=== PATIENT | male | born 1960 | race Caucasian/White ===

== ENCOUNTER 2020-02-04 15:11 | Emergency (ER) | payer BC, SELFPAY ==
[2020-02-04 15:30] VITALS: BP 164/91; PULSE 77; RESP 18; TEMP 36.9; O2SAT 98
[2020-02-04] MEDS: FAMOTIDINE 20 MG/ISO 50 ML 20 MG/50 ML BAG 100 MG IVPB (15:56)
[2020-02-04] MEDS: methylPREDNISolone SOD SUCC 125 MG VIAL IV PUSH (15:56)
--- NOTE | 2020-02-04 16:06 | ED.ALLEREA ---
HPI - Allergic Reaction General Chief complaint: Allergic Reaction Stated complaint: allergic reaction Time Seen by Provider: 02/04/20 15:50 Source: patient and RN notes reviewed Mode of arrival: ambulatory Limitations: no limitations History of Present Illness MD complaint: allergic reaction and facial swelling Onset (ago): hour(s) (8) Exposure: unknown Symptoms: facial swelling and lip swelling Severity: moderate Treatment prior to arrival: benadryl Previous Allergic Reaction History: none Related Data Home Medications Medication Instructions Recorded Confirmed atorvastatin 20 mg tablet 20 mg PO QPM tablet 11/07/19 02/04/20 blood-glucose meter,continuous #1 each 11/07/19 11/07/19 insulin glargine [Lantus U-100 45 unit SUB-Q HS 02/04/20 02/04/20 Insulin] Allergies Allergy/AdvReac Type Severity Reaction Status Date / Time No Known Allergies Allergy Unverified 10/02/19 10:28 Review of Systems Constitutional: Constitutional: Denies chills, Denies fatigue, Denies fever(s) and Denies weakness Cardiovascular: Cardiovascular: Reports no additional cardiovascular complaints Respiratory: Respiratory: Denies dyspnea, Denies stridor and Denies wheezing Gastrointestinal: Gastrointestinal: Reports no additional gastrointestinal complaints Musculoskeletal: Musculoskeletal: Reports no additional musculoskeletal complaints Integumentary/Breasts: Skin/Breast: Reports system reviewed and no additional complaints, except as docu, Denies pruritus and Denies erythema Psychiatric: Psychiatric: Reports no additional psychiatric complaints Endocrine: Endocrine: Reports no additional endocrine complaints Hematologic/Lymphatic: Hematologic/Lymphatic: Reports no additional hematologic/lymphatic complaints Allergic/Immunologic: Allergic/Immunologic: Denies urticaria, Denies itchy eyes, Reports lip swelling, Denies throat swelling, Reports tongue swelling and Denies wheezing PMFSH Surgical History Surgical History H/O cataract extraction Family History Family History Grandparent Diabetes mellitus Mother Hypertension Family history of osteoarthritis Father Family history of malignant neoplasm of urinary bladder Other Family history of Alzheimer's disease Family history of lung cancer Malignant neoplasm of prostate No family history of malignant neoplasm Social History Social History Alcohol intake: current Exam Const: General: healthy appearing, no acute distress and alert Nutritional Appearance: well nourished and obese centrally obese Orientation/consciousness: patient oriented x3 HENMT: Mouth: Yes lip abnormal bilateral lower swelling; without rashes, Yes muffled voice and Yes tongue abnormal edematous Throat: posterior oropharynx abnormal edema and uvular edema Eyes: Conjunctivae: conjunctivae normal Pupils: Equal, round and reactive pupils present Neck: Neck: normal visual inspection and no lymphadenopathy Resp: Effort & Inspection: normal respiratory effort and not labored Auscultation: clear to auscultation bilaterally Cardio: Rate: regular rate Rhythm: regular rhythm GI: GI Palp: Yes Soft to palpation and No Tenderness to palpation present (GI) Auscultation: normal bowel sounds Back/Spine/Pelvis: Cervical Spine: cervical ROM normal Thoracic/Lumbar Spine: thoraco-lumbar ROM normal Skin: General skin exam: normal color Rashes: no rashes Neuro: General: patient oriented x3, moves all extremities and no focal motor deficits Gait exam (Neuro): Normal gait present Extrem: General: normal to inspection and no clubbing, cyanosis or edema Psych: Appearance: grossly normal and well kempt Affect: normal affect Attitude: cooperative Thought content: Yes Normal thought content present Course Reevaluation(s) Reevaluation #1: Aleja
[2020-02-04 16:28] VITALS: BP 157/61; PULSE 73; RESP 18; O2SAT 99
[2020-02-04 17:32] VITALS: BP 151/82; PULSE 71; RESP 18; O2SAT 99
== END 2020-02-04 17:46 | disposition home or self-care (01) ==
PROVIDERS: Emergency Provider Emergency Medicine
DX: T78.3XXA Angioneurotic edema, initial encounter (principal)
CPT/HCPCS: 96365; 96375; 99282; 99284; J2930

== ENCOUNTER 2021-07-22 08:58 | Emergency (ER) | payer BC, SELFPAY ==
--- NOTE | ~2021-07-22 | US_ITS ---
EXAMINATION: US venous doppler [facility] DATE: 07/22/2021 10:23 INDICATION: Left lower limb swelling. TECHNIQUE: Grayscale ultrasound images without and with compression and Doppler ultrasound images of the left lower extremity veins were obtained. COMPARISON: None. FINDINGS: The visualized portions of left common femoral vein, profunda (deep) femoral vein, femoral vein, popl iteal vein, peroneal veins, posterior tibial veins, and greater saphenous vein outflow are patent. IMPRESSION: 1. No deep venous thrombosis. Reviewed, dictated and finalized at location A. APPLICATION DEVELOPMENT MANAGER
--- NOTE | ~2021-07-22 | XR_ITS ---
XR ankle LT min 3V 07/22/2021 11:11 Indication: Ankle swelling and pain Procedure: 4 views left ankle Comparison: No prior studies for comparison. Findings: There is a large amount of soft tissue swelling. Ankle mortise intact. There is a possible avulsion fracture at the medial malleolus. There is deformity of the mid foot with multiple loose bod ies superior to the midfoot on the lateral view. Findings are suspicious for neuropathic joint or inf ection. Impression: 1: Deformity of the midfoot with loose bodies. Consider neuropathic joint or infection. If there is c oncern for infection, consider correlation with MRI. 2: Possible avulsion fracture at the medial malleolus. Correlate for point tenderness. Reviewed, dictated and finalized at location A. ATION REP Impression: 1: Deformity of the midfoot with loose bodies. Consider neuropathic joint or in fection. If there is concern for infection, consider correlation with MRI. 2: Possible avulsion fracture at the medial malleolus. Correlate for point tend erness.
[2021-07-22 09:12] VITALS: BP 153/69; PULSE 99; RESP 18; TEMP 37.1; O2SAT 98
--- NOTE | 2021-07-22 09:14 | ED.GENADULT ---
HPI - General Adult General Chief complaint: Extremity Problem,Nontraumatic Stated complaint: L FOOT SWOLLEN Time Seen by Provider: 07/22/21 09:14 Source: patient Mode of arrival: ambulatory Limitations: no limitations History of Present Illness HPI narrative: 61-year-old male with a history of diabetes, dyslipidemia, hypertension and obesity presents with -- left leg and left foot swelling for the past few days. No history of trauma. No obvious focus of infection. No chest pain or shortness of breath. No fever chills. MD complaint: left leg and foot swelling Onset (ago): day(s) Location: left and lower extremity ( Left lower leg and foot) Radiation: non-radiation Severity: moderate Associated symptoms: rash ( skin is erythematous.) Related Data Home Medications Medication Instructions Recorded Confirmed blood-glucose meter,continuous #1 each 09/11/20 05/13/21 furosemide 20 mg PO BID 07/22/21 07/22/21 hydrochlorothiazide 25 mg PO DAILY 07/22/21 07/22/21 olmesartan 20 mg PO DAILY 07/22/21 07/22/21 tadalafil 20 mg PO DAILY 07/22/21 07/22/21 Allergies Allergy/AdvReac Type Severity Reaction Status Date / Time lisinopril Allergy Severe angioedema Verified 07/22/21 09:16 Review of Systems Review of Systems: All systems reviewed & are unremarkable except as noted in HPI and below Cardiovascular: Comments: No chest pain Respiratory: Comments: no shortness of breath PMFSH Past Medical History Medical History Essential (primary) hypertension Mixed hyperlipidemia Obesity, unspecified Type 2 diabetes mellitus with hyperglycemia Surgical History Surgical History H/O cataract extraction Family History Family History (Updated 07/22/21 @ 10:02 by Escobar Godfrey MD) Grandparent Diabetes mellitus Mother Hypertension Family history of osteoarthritis DVT (deep venous thrombosis) Father Family history of malignant neoplasm of urinary bladder Other Family history of Alzheimer's disease Family history of lung cancer Malignant neoplasm of prostate No family history of malignant neoplasm Social History Social History (Updated 05/13/21 @ 11:14 by Linh Mcrae [facility]) Smoking status: Never smoker Alcohol intake: current Exam Const: General: no acute distress Nutritional Appearance: well nourished Other: Obese HENMT: Head: normal to inspection Other: crowded oropharynx Eyes: Conjunctivae: conjunctivae normal Pupils: Equal, round and reactive pupils present EOM: EOMs intact bilaterally Neck: Neck: normal visual inspection and no lymphadenopathy Chest: Chest palpation & inspection: normal inspection of the chest Resp: Effort & Inspection: normal respiratory effort Cardio: Rate: regular rate Rhythm: regular rhythm GI: GI Palp: Yes Soft to palpation : General: Yes no CVA tenderness Back/Spine/Pelvis: Back: no CVA tenderness Skin: Other: redness of the skin of the left leg and foot. Neuro: General: patient oriented x3, moves all extremities and no meningeal signs Extrem: Other: Left lower leg and foot swelling. Skin is erythematous. No tenderness. No warmth. No evidence of a penetrating injury. Psych: Appearance: grossly normal Mental Status: mental status grossly normal Course Course Emergency Course: patient presents with left leg and foot swelling. His workup was done negative for DVT. Vital Signs Vital signs: Vital Signs Temperature 37.1 C 07/22/21 09:12 Pulse Rate 99 07/22/21 09:12 Respiratory Rate 18 07/22/21 09:12 Blood Pressure 153/69 H 07/22/21 09:12 Pulse Oximetry 98 07/22/21 09:12 Temperature 37.1 C 07/22/21 09:12 Pulse Rate 99 07/22/21 09:12 Respiratory Rate 18 07/22/21 09:12 Blood Pressure 153/69 H 07/22/21 09:12 Pulse Oximetry 98 07/22/21 09:12 Medical Decision Making MDM
--- NOTE | 2021-07-22 09:22 | ECG_ITS ---
Measurements Intervals [place] Rate: 89 P: 66 NV: 205 QRS: 89 QRSD: 97 T: 43 QT: 336 QTc: 409 Interpretive Statements SINUS RHYTHM DELAYED PRECORDIAL R/S TRANSITION BORDERLINE ECG Electronically Signed On 07-22-2021 11:14:27 LENS ENGRAVER by Black Mccauley D.O.
--- NOTE | 2021-07-22 09:27 | PC.NURSE ---
Cardiopulmonary notified of EKG.
[2021-07-22 09:42] LABS: Basophils Absolute Auto 0.02 K/mm3 (0.00-0.10); Basophils Percent Auto 0.3 % (0.0-1.0); Eosinophils Absolute Auto 0.12 K/mm3 (0.02-0.50); Eosinophils Percent Auto 1.8 % (1.0-6.0); Hematocrit 34.7 % (40.0-54.0); Hemoglobin 11.2 g/dL (14.0-18.0); Immature Granulocyte Absolute 0.04 K/mm3 (0.00-0.00); Immature Granulocyte Percent A 0.6 % (0.0-0.0); Lymphocytes Absolute Auto 0.87 K/mm3 (1.10-4.50); Mean Corpuscular HGB Conc 32.3 g/dL (32.0-36.0); Mean Corpuscular Hemoglobin 28.9 pg (27.0-31.0); Mean Corpuscular Volume 89.7 fL (78.0-102.0); Mean Platelet Volume 8.7 fl (8.7-11.0); Monocytes Absolute Auto 0.44 K/mm3 (0.10-0.90); Monocytes Percent Auto 6.6 % (2.0-11.0); Neutrophils Absolute Auto 5.2 K/mm3 (1.7-7.2); Neutrophils Percent Auto 77.7 % (50.0-70.0); Platelet Count Result 303 K/mm3 (150-420); Red Blood Count 3.87 M/mm3 (4.70-6.10); Red Cell Distribution Width 12.6 % (11.6-14.4); White Blood Count 6.7 K/mm3 (4.8-10.8)
[2021-07-22 09:57] LABS: Partial Thromboplastin Time 26.8 SEC (23.90-30.70); Prothrombin Time 10.7 Seconds (9.50-12.10)
[2021-07-22 10:00] LABS: D Dimer 3.08 mg/L (0.19-0.50)
[2021-07-22 10:06] LABS: Alanine Aminotransferase 27 U/L (16-63); Albumin Level 3.2 g/dL (3.4-5.0); Alkaline Phosphatase 74 U/L (46-116); Anion Gap 7 mmol/L (8-16); Aspartate Amino Transferase 18 U/L (15-37); Bilirubin,Total 0.4 mg/dL (0.00-1.00); Blood Urea Nitrogen 29 mg/dL (7-18); Calcium 8.7 mg/dL (8.5-10.1); Carbon Dioxide 31 mmol/L (21-32); Chloride 94 mmol/L (98-108); Estimated CRCL calculation 58 ml/min; Estimated Glomerular Filt Rate 42; Glucose 129 mg/dL (70-99); Osmolality Calculated 281 mOsm/kg (285-295); Potassium 3.5 mmol/L (3.5-5.1); Sodium 132 mmol/L (136-145); Troponin I 10.3 ng/L (0.00-60.4); Uric Acid 10.6 mg/dL (3.5-7.2)
[2021-07-22 10:07] LABS: NT Pro B Type Natriuretic Pept 87 pg/mL (0-125)
--- NOTE | 2021-07-22 10:33 | PC.NURSE ---
Addendum entered by Cass Childers RN 07/22/21 10:43: Lab called at 0959, not at time of documentation. Original Note: Lab called with critical D-Dimer of 3.08. Read back to equipment operator/laborer. Dr. Godfrey notified.
--- NOTE | 2021-07-22 10:50 | PC.NURSE ---
Pt resting comfortably at this time. Given urinal to void. Denies any further needs or complaints.
[2021-07-22 12:20] VITALS: BP 172/88; PULSE 84; RESP 18; O2SAT 98
== END 2021-07-22 12:21 | disposition home or self-care (01) ==
PROVIDERS: Emergency Provider Internal Medicine Critical Care Medicine; PCP Family Medicine
DX: M79.89 Other specified soft tissue disorders (principal); M14.60 Charcot's joint, unspecified site; I12.9 Hypertensive chronic kidney disease with stage 1 through stage 4 chronic kidney disease, or unspecified chronic kidney disease; M10.372 Gout due to renal impairment, left ankle and foot; N18.32 Chronic kidney disease, stage 3b; S82.892D Other fracture of left lower leg, subsequent encounter for closed fracture with routine healing; E78.2 Mixed hyperlipidemia; E11.9 Type 2 diabetes mellitus without complications
CPT/HCPCS: 36415; 73610; 80053; 83880; 84484; 84550; 85025; 85380; 85610; 85730; 93005; 93971; 99283; 99284

== ENCOUNTER 2021-07-30 10:14 | Outpatient (CLI) | payer BC, SELFPAY ==
--- NOTE | ~2021-07-30 | XR_ITS ---
EXAMINATION: XR foot LT min 3V EXAM DATE: 07/30/2021 10:36 INDICATION: Suspected Charcot Event Foot, lt Foot Edema . TECHNIQUE: Left foot dorsoplantar, lateral and oblique projections obtained and reviewed. There is n o prior study for comparison. FINDINGS: There is extensive erosive and bony productive involving the midfoot, appearance is consist ent with neuropathic joint. Soft tissue is obscured by overlying bandage. There is pes planus. Comple tely laterally dislocated left 3rd proximal phalanx and subluxed left 2nd proximal phalanx, both of w hich could be chronic but please clinically correlate. There are no acute fractures identified. IMPRESSION: 1. Severe left mid foot arthritic change, consistent with neuropathic joint. 2. Dislocated 3rd proximal phalanx, subluxed 2nd phalanx. Reviewed, dictated and finalized at location B. COMMUNICATION TOWER TECHNICIAN
== END 2021-07-30 10:15 | disposition home or self-care (01) ==
LOC: CHSIMG 10:17
PROVIDERS: PCP Family Medicine; Visit Provider Podiatrist
DX: R60.0 Localized edema (principal)
CPT/HCPCS: 73630

== ENCOUNTER 2021-08-14 10:38 | Outpatient (CLI) | payer BC, SELFPAY ==
--- NOTE | ~2021-08-14 | XR_ITS ---
EXAMINATION: XR foot LT min 3V DATE: 08/14/2021 11:20 INDICATION: Charcot deformity of left foot. TECHNIQUE: 3 views of left foot standing were obtained. COMPARISON: Left foot radiographs 07/30/2021 FINDINGS: Pes planus is noted. There is chronic fragmentation of navicular. There is severe arthritis of the naviculocuneiform joints and second-fifth tarsometatarsal joints with bone volume loss and palomares bluxations. There is chronic periosteal reaction of the second-fourth metatarsals. There is chronic l ateral subluxation of second proximal phalanx with respect to the metatarsal. There is chronic latera l dislocation of third proximal phalanx with respect to the metatarsal. No acute fracture. There is m ild osteoarthritis of some the interphalangeal joints and first metatarsophalangeal joint. IMPRESSION: 1. 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 2. Chronic dislocation of third metatarsophalangeal joint and chronic subluxation of second metatarso phalangeal joint. Reviewed, dictated and finalized at location A. ERY MACHINE SETTER/SET UP OPERATOR IMPRESSION: 1. 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 2. Chronic dislocation of third metatarsophalangeal joint and chronic subluxati on of second metatarsophalangeal joint.
== END 2021-08-14 10:39 | disposition home or self-care (01) ==
LOC: CHSIMG 10:40
PROVIDERS: PCP Family Medicine; Visit Provider Podiatrist
DX: M14.672 Charcot's joint, left ankle and foot (principal)
CPT/HCPCS: 73630

== ENCOUNTER 2021-08-28 09:57 | Outpatient (CLI) | payer BC, SELFPAY ==
--- NOTE | ~2021-08-28 | XR_ITS ---
EXAMINATION: XR foot LT min 3V EXAM DATE: 08/28/2021 10:16 INDICATION: Neuropathic foot, left foot x5-6 wks . TECHNIQUE: Left foot dorsoplantar, lateral and oblique projections obtained and reviewed. Comparison is made to prior examination from 08/14/2021. FINDINGS: More pronounced periosteal reaction along the left 3rd, 4th and 5th metatarsal bones. There is macerated appearance to the midfoot, osteolytic and bony productive changes consistent with neuro pathic joint. Chronic 3rd proximal phalangeal lateral dislocation and 2nd proximal phalangeal subluxa tion. There are no acute fractures identified. There are arterial calcifications, arteriosclerosis. S welling overlying the forefoot. IMPRESSION: 1. Severe left mid foot neuropathic joint, mild progression in metatarsal periosteal reaction. 2. Chronic 3rd proximal phalangeal dislocation and 2nd subluxation. Reviewed, dictated and finalized at location B. MANAGEMENT NURSE IMPRESSION: 1. Severe left mid foot neuropathic joint, mild progression in metatarsal jillian osteal reaction. 2. Chronic 3rd proximal phalangeal dislocation and 2nd subluxation.
== END 2021-08-28 09:58 | disposition home or self-care (01) ==
LOC: CHSIMG 09:59
PROVIDERS: PCP Family Medicine; Visit Provider Podiatrist
DX: M14.672 Charcot's joint, left ankle and foot (principal)
CPT/HCPCS: 73630

== ENCOUNTER 2021-09-18 10:44 | Outpatient (CLI) | payer BC, SELFPAY ==
--- NOTE | ~2021-09-18 | XR_ITS ---
EXAMINATION: XR foot LT min 3V DATE: 09/18/2021 11:07 INDICATION: Charcot left foot TECHNIQUE: Dorsoplantar, two oblique and lateral views of the left foot were obtained. COMPARISON: None. FINDINGS: Pes planus with collapse of the longitudinal arch. Severe polyarticular arthritis in the midfoot most prominent at the navicular cuneiform, third-fifth tarsal metatarsal joints and at the articulation b etween the medial and lateral cuneiforms. There has been some mild interval progression in associated destructive changes with some fragmentation and prominent increased sclerosis at the base of several of the metatarsals and multiple tarsal bones in the midfoot. Lateral dislocation at the third metata rsophalangeal joint and lateral subluxation near dislocation at the second metatarsophalangeal joint both without interval change. No acute fracture. IMPRESSION: 1. Mild interval progression of severe likely neuropathic osteoarthropathy in the midfoot. 2. Chronic dislocation of the third metatarsophalangeal joint and chronic subluxation/near dislocatio n of the second metatarsophalangeal joint. Reviewed, dictated and finalized at location B. LIARY POWER EQUIPMENT OPERATOR IMPRESSION: 1. Mild interval progression of severe likely neuropathic osteoarthropathy in t he midfoot. 2. Chronic dislocation of the third metatarsophalangeal joint and chronic sublu xation/near dislocation of the second metatarsophalangeal joint.
== END 2021-09-18 10:45 | disposition home or self-care (01) ==
LOC: CHSIMG 10:46
PROVIDERS: PCP Family Medicine; Visit Provider Podiatrist
DX: A52.16 Charcot's arthropathy (tabetic) (principal)
CPT/HCPCS: 73630

== ENCOUNTER 2021-10-09 13:31 | Outpatient (CLI) | payer BC, SELFPAY ==
--- NOTE | ~2021-10-09 | XR_ITS ---
XR foot LT min 3V DATE: 10/09/2021 13:53 INDICATION: Charcot deformity of left foot. Swelling. TECHNIQUE: Weightbearing AP, oblique and lateral views COMPARISON: 09/18/2021 left foot FINDINGS: Pes planus. Severe irregular destructive neuropathic osteoarthropathy at the tarsal joints and second through fif th tarsometatarsal joints is again noted. There is organized callus formation consistent with healed fractures of the shafts of the fourth and fifth metatarsal bones. There is chronic dislocation at the third metatarsophalangeal joint and lateral subluxation of the se cond metatarsophalangeal joint. There is diminished soft tissue swelling of the dorsum of the foot compared to 09/18/2021. There is extensive arterial calcification including prominent metatarsal artery calcifications. IMPRESSION: Diminished soft tissue swelling of the foot since 09/18/2021 Chronic severe neuropathic changes at the tarsal and second through fifth tarsometatarsal joints Chronic bilateral dislocation at the third metatarsophalangeal joint Chronic lateral subluxation at the second metatarsophalangeal joint Reviewed, dictated and finalized at location A. CCO SORTER IMPRESSION: Diminished soft tissue swelling of the foot since 09/18/2021 Chronic severe neuropathic changes at the tarsal and second through fifth tarso metatarsal joints Chronic bilateral dislocation at the third metatarsophalangeal joint Chronic lateral subluxation at the second metatarsophalangeal joint
== END 2021-10-09 13:32 | disposition home or self-care (01) ==
LOC: CHSIMG 13:33
PROVIDERS: PCP Family Medicine; Visit Provider Podiatrist
DX: M21.6X2 Other acquired deformities of left foot (principal)
CPT/HCPCS: 73630

== ENCOUNTER 2021-10-30 10:34 | Outpatient (CLI) | payer BC, SELFPAY ==
--- NOTE | ~2021-10-30 | XR_ITS ---
XR foot LT min 3V DATE: 10/30/2021 10:55 INDICATION: Charcot arthropathy TECHNIQUE: 3 weightbearing views COMPARISON: 10/09/2021 foot FINDINGS: There is pes planus, with extensive destructive changes and dislocations at the tarsal and tarsometatarsal joints. There is lateral subluxation at second metatarsophalangeal joint and lateral dislocation at the third metatarsophalangeal joint. There is extensive anterior and posterior tibial artery calcification IMPRESSION: Severe neuropathic osteoarthropathy, with little interval change since 10/09/2021 Reviewed, dictated and finalized at location B. E DELIVERY SERVICE DRIVER IMPRESSION: Severe neuropathic osteoarthropathy, with little interval change si nce 10/09/2021
== END 2021-10-30 10:35 | disposition home or self-care (01) ==
LOC: CHSIMG 10:36
PROVIDERS: PCP Family Medicine; Visit Provider Podiatrist
DX: M14.672 Charcot's joint, left ankle and foot (principal)
CPT/HCPCS: 73630

== ENCOUNTER 2021-11-27 11:02 | Outpatient (CLI) | payer BC, SELFPAY ==
--- NOTE | ~2021-11-27 | XR_ITS ---
XR_[id number]_CR DATE: 11/27/2021 11:22 INDICATION: Charcot left foot TECHNIQUE: 3 weightbearing views, AP, lateral and oblique projections COMPARISON: October 30, 2021 ( FINDINGS: Again noted is extensive destructive change, bone and joint disintegration involving the ta rsal and tarsometatarsal areas, with dislocations in tarsometatarsal and third metatarsophalangeal dung ints. The radiographic features are classic for Charcot neuropathic changes. There is little change since 10/30/2021. IMPRESSION: No significant change since 10/30/2021 Reviewed, dictated and finalized at [facility]. Reviewed, dictated and finalized at location A.
== END 2021-11-27 11:03 | disposition home or self-care (01) ==
LOC: CHSIMG 11:05
PROVIDERS: PCP Family Medicine; Visit Provider Podiatrist
DX: M14.672 Charcot's joint, left ankle and foot (principal)
CPT/HCPCS: 73630

== ENCOUNTER 2022-05-01 10:34 | Outpatient (CLI) | payer BC, SELFPAY ==
--- NOTE | ~2022-05-01 | XR_ITS ---
XR foot LT min 3V DATE: 05/01/2022 10:54 INDICATION: Neoplasm of unspecified behavior bone TECHNIQUE: 3 views COMPARISON: 10/30/2021 left foot FINDINGS: Prominent anterior and posterior tibial artery, dorsalis pedis artery, metatarsal and digit al artery calcifications are present, suggesting diabetes. Pes planus. Prominent neuropathic changes are again identified particularly at the tarsal and tarsal metatarsal j oints, including joint space narrowing, destruction. There is chronic dislocation at the third metata rsophalangeal joint. IMPRESSION: Persistent severe neuropathic changes Extensive arterial calcifications likely due to diabetes Pes planus Reviewed, dictated and finalized at location A.
== END 2022-05-01 10:35 | disposition home or self-care (01) ==
LOC: CHSIMG 10:37
PROVIDERS: Visit Provider Student in an Organized Health Care Education/Training Program
DX: A52.16 Charcot's arthropathy (tabetic) (principal)
CPT/HCPCS: 73630

== ENCOUNTER → 2022-05-01 13:09 | Outpatient (CLI) | payer BC, SELFPAY ==
--- NOTE | ~2022-05-01 | MR_ITS ---
EXAMINATION: MR foot LT wo/w con DATE: 05/01/2022 14:10 INDICATION: Left foot swelling. Neoplasm of unspecified behavior of bone. TECHNIQUE: Magnetic resonance imaging (MRI) of the left foot was performed without and with 20 mL Mul tiHance intravenous contrast. COMPARISON: Left foot radiographs 05/01/2022, 11/27/21 FINDINGS: There is lateral dislocation of third proximal phalanx with respect to the metatarsal. Ther e is severe neuropathic osteoarthropathy of the midfoot including bone volume loss of navicular, cubo id, the cuneiforms, and the bases of the second-fifth metatarsals resulting in a rocker-bottom deform ity. There is osteoarthritis of the ankle joint including an osteochondral lesion talar dome. There i s mild osteoarthritis of many of the metatarsophalangeal joints and interphalangeal joints. There is severe fatty atrophy of the musculature of the foot. There is inflammation and scarring in the soft t issues around the midfoot including the subcutaneous fat plantar to the midfoot. No visible skin defe ct. IMPRESSION: 1. 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 2. Dislocation of third metatarsophalangeal joint. Reviewed, dictated and finalized at location A. IMPRESSION: 1. 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 2. Dislocation of third metatarsophalangeal joint.
== END ==
PROVIDERS: PCP Student in an Organized Health Care Education/Training Program; Visit Provider Student in an Organized Health Care Education/Training Program
DX: M19.072 Primary osteoarthritis, left ankle and foot (principal)
CPT/HCPCS: 73720; A9577

== ENCOUNTER 2022-08-11 15:46 | Outpatient (CLI) | payer BC, SELFPAY | END 2022-08-11 15:47 | disposition home or self-care (01) | PROVIDERS: PCP Family Medicine; Visit Provider Specialist | DX: C44.519 Basal cell carcinoma of skin of other part of trunk (principal) | CPT/HCPCS: 88305 ==

== ENCOUNTER 2023-10-26 18:33 | Emergency (ER) | payer BC, SELFPAY ==
--- NOTE | 2023-10-26 18:38 | ED.BACK ---
HPI - Back Pain/Injury General Chief Complaint: Back Pain/Injury Stated Complaint: Lower back pain Time Seen by Provider: 10/26/23 19:08 Source: patient and RN notes reviewed Mode of arrival: ambulatory Limitations: no limitations History of Present Illness HPI Narrative: 63-year-old male presents with concern of for right low back pain since yesterday. Reports he was having some back spasm my now is having pain particularly when he tries to step up into his truck. He reports he has been using a leaf. He denies loss of bowel or bladder function, perianal anesthesia, weakness in any extremity. He denies injury or trauma. 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 CARDIOVASCULAR: Denies chest pain, palpitations, or edema. RESPIRATORY: Denies cough or dyspnea. GASTROINTESTINAL: Denies abdominal pain, nausea, vomiting, diarrhea, loss of bowel function GENITOURINARY: Denies dysuria, hematuria, frequency, loss of bladder function. SKIN: Denies rash or itching. MUSCULOSKELETAL: Reports right low back pain NEUROLOGIC: Denies numbness, weakness, or headache. All systems reviewed & are unremarkable except as noted in HPI and below [facility] Past Medical History Medical History (Updated 10/26/23 @ 19:20 by Renetta Nunez NP) Charcot ankle (~10/2022) Diabetic foot ulcer Essential (primary) hypertension Mixed hyperlipidemia Obesity, unspecified Skin cancer Removed from chest 09/2022 Type 2 diabetes mellitus with hyperglycemia Surgical History Surgical History H/O cataract extraction Family History Family History Grandparent Diabetes mellitus Mother Hypertension Family history of osteoarthritis DVT (deep venous thrombosis) Father Family history of malignant neoplasm of urinary bladder Other Family history of Alzheimer's disease Family history of lung cancer Malignant neoplasm of prostate No family history of malignant neoplasm Social History Social History Smoking status: Never smoker Second hand tobacco smoke exposure: No Alcohol intake: current Do You Feel Safe in your Home?: Yes Lack of Transportation: No Lack of Food: Never True Current Housing: I Have Housing Concerned About Future Housing: No Difficulty Paying Gas/Electric Bills: No Difficulty Paying for Meds: No Currently Unemployed: No Education: High School Diploma/GED Difficulty w/ Childcare or Family Care: No Comments At time of signature, agree with nursing past medical, surgical, social and family history. There is no relevant family history pertinent to the presenting complaint Exam Narrative: GENERAL: Well-appearing, well-nourished, and in no acute distress. HEAD: Normocephalic, atraumatic. EYES: PERRLA and EOMI. NECK: Supple. No lymphadenopathy. CHEST: Clear to auscultation. No respiratory distress. HEART: Regular rate and rhythm. Distal pulses palpable and equal, cap refill <3 seconds ABDOMEN: Soft, nontender, nondistended, normal active bowel sounds, no palpable or pulsatile masses. No CVA tenderness MUSCULOSKELETAL: Normal range of motion and strength in all extremities; 5/5 strength with hip flexion and extension, dorsiflexion and extension, knee flexion a
[2023-10-26 18:40] VITALS: BP 161/66; PULSE 86; RESP 16; TEMP 36.4; O2SAT 99
[2023-10-26] MEDS: KETOROLAC (*BKC) 60 MG/2 ML VIAL IM (19:27)
== END 2023-10-26 19:33 | disposition home or self-care (01) ==
PROVIDERS: Emergency Provider Nurse Practitioner; PCP Family Medicine
DX: M54.50 Low back pain, unspecified (principal); I10 Essential (primary) hypertension; E11.9 Type 2 diabetes mellitus without complications; E78.2 Mixed hyperlipidemia; Z85.828 Personal history of other malignant neoplasm of skin
CPT/HCPCS: 96372; 99213; G0463; J1885

== ENCOUNTER 2023-11-01 12:50 | Emergency (ER) | payer BC, SELFPAY ==
[2023-11-01 12:54] VITALS: BP 179/79; PULSE 85; RESP 18; TEMP 36.4; O2SAT 100
[2023-11-01] MEDS: methocarbamoL 500 MG TABLET 1000 MG PO (13:11)
[2023-11-01] MEDS: HYDROcodone/acetaminophen (*CRX) 5-325 MG TABLET 2 TAB PO (13:12)
[2023-11-01] MEDS: KETOROLAC (*BKC) 60 MG/2 ML VIAL IM (13:13)
[2023-11-01] MEDS: ORPHENADRINE CITRATE 30 MG/ML 2 ML VIAL 60 MG IM (13:13)
--- NOTE | 2023-11-01 13:52 | ED.GENADULT ---
HPI - General Adult General Chief complaint: Back Pain/Injury Stated complaint: back pain Time Seen by Provider: 11/01/23 12:55 History of Present Illness HPI narrative: 63yo man with diabetic neuropathy and severe obesity presents with one week of low right sided back pain, not improving with Prednisone and Cyclobenzaprine (Flexeril) given to him by urgent care 6 days ago. No fevers, chills, numbness, weakness, saddle anesthesia, retention, or incontinence. Pain is very minor at rest but 9/10 with lifting of the right leg, impairing ambulation. No trauma or straining activity recently. 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) aspirin 81 mg tablet,delayed 81 mg PO DAILY 10/22/22 09/08/23 release (Adult Low Dose Aspirin) silver sulfadiazine 1 % topical applic topical 10/26/23 10/26/23 cream (SSD) Allergies Allergy/AdvReac Type Severity Reaction Status Date / Time lisinopril Allergy Severe angioedema Verified 11/01/23 12:53 Review of Systems Review of Systems: All systems reviewed & are unremarkable except as noted in HPI and below Constitutional: Constitutional: Denies chills and Denies fever(s) Eyes: Eyes: Denies change in vision ENT: Denies dysphagia Cardiovascular: Cardiovascular: Denies chest pain Respiratory: Respiratory: Denies dyspnea Gastrointestinal: Gastrointestinal: Denies abdominal pain [facility] Past Medical History Medical History Charcot ankle (~10/2022) Diabetic foot ulcer Essential (primary) hypertension Mixed hyperlipidemia Obesity, unspecified Skin cancer Removed from chest 09/2022 Type 2 diabetes mellitus with hyperglycemia Surgical History Surgical History H/O cataract extraction Family History Family History Grandparent Diabetes mellitus Mother Hypertension Family history of osteoarthritis DVT (deep venous thrombosis) Father Family history of malignant neoplasm of urinary bladder Other Family history of Alzheimer's disease Family history of lung cancer Malignant neoplasm of prostate No family history of malignant neoplasm Social History Social History Smoking status: Never smoker Second hand tobacco smoke exposure: No Alcohol intake: current Do You Feel Safe in your Home?: Yes Lack of Transportation: No Lack of Food: Never True Current Housing: I Have Housing Concerned About Future Housing: No Difficulty Paying Gas/Electric Bills: No Difficulty Paying for Meds: No Currently Unemployed: No Education: High School Diploma/GED Difficulty w/ Childcare or Family Care: No Exam Const: General: no acute distress and alert Nutritional Appearance: well nourished HENMT: Head: normal to inspection Eyes: Conjunctivae: conjunctivae normal Resp: Effort & Inspection: normal respiratory effort and not labored Cardio: Rate: regular rate Back/Spine/Pelvis: Back: no CVA tenderness Other: no midline spinal tenderness; right SI joint is mildly tender; paraspinal muscles nontender Skin: General skin exam: normal color, no jaundice and no pallor Neuro: General: patient oriented x3 and moves all extremities Speech: normal speech Other: antalgic gait Course Vital Signs Vital signs: Vital Signs Temperature 36.4 C 11/01/23 12:54 Pulse Rate 85 11/01/23 12:54 Respiratory Rate 18 11/01/23 12:54 Blood Pressure 179/79 H 11/01/23 12:54 Pulse Oximetry 100 11/01/23 12:54 Oxygen Delivery Room Air 11/01/23 12:54 Temperature 36.4 C 11/01/23 12:54 Pulse Rate 85 11/01/23 12:54 Respiratory Rate 18 11/01/23 12:54 Blood Pressure 179/79 H 11/01/23 12:54 Puls
[2023-11-01 14:01] VITALS: BP 158/77; PULSE 80; RESP 16; TEMP 36.6; O2SAT 99
== END 2023-11-01 14:03 | disposition home or self-care (01) ==
PROVIDERS: Emergency Provider Emergency Medicine; PCP Family Medicine
DX: M54.50 Low back pain, unspecified (principal); I10 Essential (primary) hypertension; E11.9 Type 2 diabetes mellitus without complications; Z79.899 Other long term (current) drug therapy; Z85.828 Personal history of other malignant neoplasm of skin
CPT/HCPCS: 96372; 99284; A9270; J1885; J2360

== ENCOUNTER 2025-06-10 20:29 | Inpatient (IN) | payer BC, SELFPAY ==
--- OUTSIDE RECORDS SUMMARY | 2019-11-15 11:15 | XMS_ITS | Continuity of Care Document ---
Author Organization [facility] Address [address] [facility] charlene Keenan [address] [address] Phone Care Team Providers Care Enterprise Analyst Name Role Phone Fidel Jimenez MD Unavailable Unavailable Allergies, Adverse Reactions, Alerts Substance Reaction Status Criticality No Known Allergies Active No Inform ation Medications Medication Instructions Dosage Effective Dates (start - stop) Status Comments ketorolac 0.5 % eye drops instill 1 drop in the operated eye 3 times a day for 4 weeks - Active Vigamox 0.5 % eye drops Instill 1 drop in the operated eye QID x 1 week, and then TID until bottle runs out - Active ok to substitute Polytrim with same instructions 5ML bottle prednisolone acetate 1 % eye drops,suspension instill 1 drop in the operated eye QID x 1 week, TIDx 1 week, BID x 1 week then Qday x 1 week then stop - Active lisinopril 20 mg-hydrochlorothia zide 12.5 mg tablet take 1 tablet by oral route every day 1.00 tablet - Active Lantus Solostar U-100 Insulin 100 unit/mL (3 mL) subcutaneous pen inject by subcutaneous route as per insulin protocol 0.00 - Active Humalog Mix 50-50 (U-100) Insulin 100 unit/mL subcutaneous suspension inject by subcutaneous route as per insulin protocol - Active tadalafil 20 mg tablet take 1 tablet by oral route every day 20 MG - Active atorvastatin 20 mg tablet take 1 tablet by oral route every day 20 MG - Active Procedures Procedure Date Remove Cataract, Insert Lens IOLMaster-Professional Remove Cataract, Insert Lens IOLMaster-Professional No Charge Orbscan IOLMaster-Technical SCODI, Retina No Charge Refraction Office/outpatient Visit, New Advance Directives Directive Yes / No Effective Date File Name No Information Encounters Encounter Description Practice Location Reason(s) For Visit Diagnoses Date Provider Providers Copied on Encounter [facility], [address] [place] [address] [address], [place], [place], [id number], [place] tel:[phone] [facility] No Information Mar-0 4-202 0 Tony Parra. [address] [facility] [place], [id number], . tel:[phone] Referring Provider: Bucky Altamirano OD, [address] [place] [address], [address]. tel:[phone] [facility], [id number] [place] [address] [address], [place], [place], [address], [place] tel:[phone] SEC Neri Shah No Information Mar-0 3-202 0 Tony Parra. [address] [facility], [facility] [address], [place], [place], [address], [place]. tel:[phone] Referring Provider: Bucky Altamirano OD, [address] [place], [address]. tel:[phone] [facility], [address] [facility] [address], [place], [place], [id number], [place] tel:[phone] SEC Stiven Stanley No Information Mar-0 2-202 0 Cindy Lofton. [address] [facility], [address], [place], [place], [address], [place]. tel:[phone] [facility], [address], [place], [place], [address], [place] tel:[phone] SEC Salley N Candice No Information 0 Tony Parra. [address] [facility], [address], [place], [place], [address], . tel:[phone] [facility], [address] [place] [address] [address], [place], [place], [address], tel:[phone] [facility] No Information 0 0 Tony Parra. [address] [facility], [address] [place], [address], [place]. tel:[phone] Referring Provider: Bucky Altamirano OD, [address] [place] [address], [facility]. tel:[phone] [facility], [address] [place] [address] [address], [place], [place], [address], tel:[phone] SEC Neri SANTACRUZ Professional No Information 0 Tony Parra. [address] [facility], [address] [place], [address], [place]. tel:[phone] Referring Provider: Bucky Altamirano OD, [address] [place] [address], [address]. 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 [address] [facility], [address] [place], [address], . tel:[phone] Referring Provider: Bucky Altamirano OD, [address] [place] [address], [address]. tel:[phone] [facility], [address], [place], [place], [address], [place] tel:[phone] SEC Stiven Stanley No Information 0201 9 Tony Parra. [address] [facility], [address], [place], [place], [address], [place]. tel:[phone] Referring Provider: Bucky Altamirano OD, [address] [facility], [place], [address]. tel:[phone] Family History Family Member Type Diagnosis Age At Onset Father Problem (finding) Diabetes mellitus Payers Payer name Insurance type Covered republican ID Authoriza tistas(s) [place] Out Of [place] [id number] Social History Type Description Quantity Date Captured Comments Sex Male Smoking Status No Information Chief Complaint And Reason For Visit No Information Reason For Referral Reason For Referral No Information Plan Of Treatment Date Type Action Status Goal Tobacco cessation counseling completed Patient Education Cataract Surgery: What to Expect at H~ completed History Of Present Illness Encounter Date Complaint History Of Prese nt Illness COLLECTIONS MANAGER Cataract Eval The 59 year old male presents for evaluation of COLLECTIONS MANAGER Cataract Eval in the right eye and left eye. Hx Cataract OU. DM1, last A1c 6.3, last tested 3 months ago, BS 185 as of right now, followed by Dr. Naranjo, Pt will be seeing a new Rehanger as of next week. . Pt referred to us by Dr. Altamirano. Pt reports glare while driving at night. Pt reports trouble reading small print at near like newspapers, books and medicine bottles x 3+ months. Functional Status Date Functional Assessmen t No Information Instructions Date Instruction Additional Infor mation Impression/Plan Assessments Type Assessment Date No Information Patient Care Teams Name Effective Dates (start - stop) Status Members No Information
[2025-06-10] VITALS (18 sets, daily range): BP systolic 93–134; BP diastolic 45–70; PULSE 75–84; RESP 12–25; TEMP 36.8; O2SAT 94–100
--- NOTE | ~2025-06-10 | XR_ITS ---
Examination: XR chest 2V Clinical History: weakness Comparison: 09/22/2019 Technique: PA and Lateral Findings: Cardiomediastinal silhouette normal size and configuration. Lungs clear. No acute bony abnormality. Right shoulder girdle fractured cerclage wires. IMPRESSION: 1. No acute cardiopulmonary findings. Reviewed, dictated and finalized at location R.
--- NOTE | 2025-06-10 20:36 | ECG_ITS ---
Test Date: 2025-06-10 20:38:12 Measurements Intervals [place] Rate: 77 P: 7 NV: 239 QRS: 8 QRSD: 115 T: 45 QT: 291 QTc: 331 Interpretive Statements SINUS RHYTHM WITH FIRST DEGREE AV BLOCK INTRAVENTRICULAR CONDUCTION DELAY NONSPECIFIC T-WAVE ABNORMALITY Electronically Signed On 06-10-2025 20:53:54 CDT by Tai Rahman D.O
[2025-06-10] MEDS: SODIUM CHLORIDE 0.9% IV 1,000 ML 999 ML IV CONT ×2 (21:17→22:50)
--- OUTSIDE RECORDS SUMMARY | 2025-06-10 21:27 | XMS_ITS | Clinical Summary ---
Author Organization [facility] [employer] Address [address] [place] [address] Care Team Providers Care Certified Pediatric Nurse Practitioner Name Role Phone ChisholmKolenat Orellana Primary Care Provider [phone] Source Comments [facility] [employer],non-owned Affiliates and Associated Physician Practices is amultiple site organization consisting of ambulatory clinics and hospital sitesin [place], [place], [place] and [place]. This disclosure is being madepursuant to the Care Everywhere program and may not contain all information available regarding this patient. Last updated 18.[facility] [employer] Allergies Active Allergy Reactions Criticality Noted Date Comments Lisinopril Anaphylaxis High 11/04/2022 face and thoat swells Medications * Be aware that medications may not be up to date on this document. Alwaysverify current medications with the patient. atorvastatin (Lipitor) 20 MG tablet Take 1 (one) tablet by mouth at bedtime Active insulin lispro (HumaLOG;ADMel og) 100 UNIT/ML penIndications :Type 2 Diabetes Mellitus takes 5-7 units depending on blood sugar readings Reasons: Type 2 Diabetes Active Insulin Glargine (SEMGLEE SC) Inject 45 Units subcutaneously 3 times daily Active aspirin (Aspirin) 325 MG tabletIndicati ons:prevention dvt post surgery Take 1 (one) tablet by mouth once daily Reasons: prevention dvt post surgery Active oxyCODONE-acet aminophen (Percocet) 5-325 MG tabletIndicati ons:Pain Take 1 (one) tablet by mouth every 6 hours as needed for Pain Reasons: Pain Active Active Problems Problem Noted Date Diagnosed Date Post-operative state 11/05/2022 Family History Medical History Relation Name Comments Cancer - Lung Father Alzheimer's Disease Mother Relation Name Status Comments Father Mother Social History Tobacco Use Types Packs/Day Years Used Date Smoking Tobacco: Never Smokeless Tobacco: Never Tobacco Cessation:Counseling Given: Not Answered Alcohol Use Standard Drinks/Week Comments Yes 5 (1 standard drink = 0.6 oz pur e alcohol) 5 per week OASIS D0700: Social Isolation Answer Da te Recorded Frequency of experiencing loneliness or isolatio n Never 12/03/2022 OASIS A1250: Transportation Answer Date Recorded Lack of Transportation (Medical) No 12/03/2022 Lack of Transportation (Non-Medical) No 12/03/2022 Patient Unable or Declines to Respond No 12/03/2022 OASIS B1300: Health Literacy Answer Oliver e Recorded Frequency of needing help to read materials from doctor or pharmacy Never 12/03/2022 AUDIT-C Answer Date Recorded Q1: How often do you have a drink containing alc ohol? 2-3 times a week 12/31/2022 Q2: How many drinks containi ng alcohol do you have on a typical day when you are drinking? 1 or 2 12/31/2022 Q3: How often do you have si x or more drinks on one occasion? 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 Gender Identity Not on file Sexual Orientation Not on file Last Filed Vital Signs Vital Sign Reading Time Taken Comments Blood Pressure 125/63 01/14/2023 2:57 PM CDT Pulse 68 01/14/2023 2:47 PM CDT Temperature 36.3 C (97.4 F) 01/14/2023 2:47 PM CDT Respiratory Rate 18 01/14/2023 2:47 PM CDT Oxygen Saturation 98% 01/14/2023 2:47 PM CDT Inhaled Oxygen Concentration - - Weight 131.5 kg (290 lb) 01/14/2023 8:39 AM CDT Height 182.9 cm (6') 01/14/2023 8:39 AM CDT Body Mass Index 39.33 01/14/2023 8:39 AM CDT Plan of Treatment Health Maintenance Due Date Last Done Comments COLOGUARD (AGES 45-75) - COL ON CA SCREENING 1960 COLON MONITORING 1960 COLONOSCOPY - COLON CA SCREENING 1960 CT COLONOGRAPHY - COLON CA SCREENING 1960 Colorectal Cancer Screening 1960 FIT - COLON CA SCREENING 1960 FLEX SIG - COLON CA SCREENING 1960 HIV SCREENING 02/24/1975 HEPATITIS C SCREENING 02/20/1978 DTAP/TDAP/TD VACCINES (1 - Tdap) 02/24/1979 PNEUMOCOCCAL VACCINE 50+ (1 of 1 - PCV) 02/24/2010 ZOSTER VACCINE (1 of 2) 02/24/2010 DEPRESSION SCREENING 09/13/2024 COVID-19 VACCINE (1 - 2023-2 5 season) 2025 INFLUENZA VACCINE (#1) 2025 Respiratory Syncytial Virus (RSV) Vaccine Pt: or over 60 yrs (1 - 1-dose 75+ series) 02/24/2035 HEPATITIS B VACCINE Aged Out No longe r eligible based on patient's age to complete this topic HIB VACCINE Aged Out No longer eligi ble based on patient's age to complete this topic HPV VACCINE Aged Out No longer eligi ble based on patient's age to complete this topic MENINGOCOCCAL (Group B) VACC INE SHARED DECISION-MAKING Aged Out No longer eligibl e based on patient's age to complete this topic MENINGOCOCCAL GROUPS A/C/Y/W VACCINE Aged Out No longer eligible b ased on patient's age to complete this topic Medical Devices Implanted Type Area Cut Off Operator Scorer Device Identifier Shelf Expiration Date Model / Serial / Lot Ring Extfix 180mm Cfbr Full Hfmn Lmb Implanted:Qty: 1 on 11/05/2022 by Gonzalo Krueger DPM at [facility] Left: Foot [employer] 4933-5-180 / / Dutton Extfix Hfmn Strut Cnct Lmb Recon Implanted:Qty: 10 on 11/05/2022 by Gonzalo Krueger DPM at [facility] Left: Foot [employer] 4933-1-702 / / Wshr 7mm Unv Hfmn Orth Rd Lmb Recon Frm Implanted:Qty: 2 on 11/05/2022 by Gonzalo Krueger DPM at [facility] Left: Foot [employer] 4933-1-713 / / 2.0 Mm. Wire, [place] Implanted:Qty: 1 on 11/05/2022 by Gonzalo Krueger DPM at [facility] Left: Foot [employer] [id number] / / Telescopic Strut Extra Short, Black, 100-125mm Implanted:Qty: 2 on 11/05/2022 by Gonzalo Krueger DPM at [facility] Left: Foot [employer] 4933-0-180 / / Foot Ring 180mm Implanted:Qty: 1 on 11/05/2022 by Gonzalo Krueger DPM at [facility] Left: Foot [employer] 4934-4-180 / / Foot Ring Short 180mm Implanted:Qty: 1 on 11/05/2022 by Gonzalo Krueger DPM at [facility] Left: Foot [employer] 4934-5-180 / / Foot Arch 180 Mm Implanted:Qty: 1 on 11/05/2022 by Gonzalo Krueger DPM at [facility] Left: Foot [employer] 4934-6-180 / / Hexapod Strut Short Implanted:Qty: 1 on 11/05/2022 by Gonzalo Krueger DPM at [facility] Left: Foot [employer] 4935-0-020 / / Hexapod Strut Medium Implanted:Qty: 6 on 11/05/2022 by Gonzalo Krueger DPM at [facility] Left: Foot [employer] 4935-0-030 / / Hexapod Strut Long Implanted:Qty: 1 on 11/05/2022 by Gonzalo Krueger DPM at [facility] Left: Foot [employer] 4935-0-040 / / Id Kit Implanted:Qty: 1 on 11/05/2022 by Gonzalo Krueger DPM at [facility] Left: Foot [employer] 4935-1-100 / / Nut Orth Hfmn M8 Shrt Cnct Lmb Recon Frm Implanted:Qty: 28 on 11/05/2022 by Gonzalo Krueger DPM at [facility] Left: Foot [employer] 4933-1-010 / / 7.0 Xl Compression Ft Screw, 125mm Length Implanted:Qty: 1 on 01/14/2023 by Gonzalo Krueger DPM at [facility] [employer] 05/13/2025 [id number] / / [id number] Kit Bngf 3cc Aug Inj Implanted:Qty: 1 on 01/14/2023 by Gonzalo Krueger DPM at [facility] Left: Foot [employer] 05/13/2023 [id number] / / [id number] Kit Bngf 3cc Aug Inj Implanted:Qty: 1 on 01/14/2023 by Gonzalo Krueger DPM at [facility] Left: Foot [employer] 06/12/2023 [id number] / / [id number] Gft Bone Allofiber Dmnr Bone Fbr 10cc - [id number] Implanted:Qty: 1 on 01/14/2023 by Gonzalo Krueger DPM at [facility] Left: Foot Imagin[employer] 11/06/2024 [id number] / [id number] / 7.0 Headless Screw Implanted:Qty: 1 on 01/14/2023 by Gonzalo Krueger DPM at [facility] Left: Foot [employer] [id number] / / 5.0 [id number] Dutton Implanted:Qty: 1 on 01/14/2023 by Gonzalo Krueger DPM at [facility] Left: Foot [employer] [id number] / / Explanted Type Area Cut Off Operator Scorer Device Identifier Shelf Expiration Date Model / Serial / Lot 2.0 Mm Wire With [place], Marcy [place] Explanted:Qty: 6 on 11/05/[address] [facility] Left: Foot 4933-8-040 / / Dutton Extfix 1.5-2mm Hfmn Lng Wire Lmb Explanted:Qty: 2 on 11/05/[address] [facility] Left: Foot [employer] [id number] / / Dutton Extfix 1.5-2mm Hfmn Med Wire Lmb Explanted:Qty: 10 on 11/05/[address] [facility] Left: Foot [employer] 4933-1-002 / / Dutton Extfix 1.5-2mm Hfmn Lng Wire Lmb Explanted:Qty: 2 on 11/05/[address] [facility] Left: Foot [employer] [id number] / / Wshr Extfix Taco 4mm Explanted:Qty: 2 on 11/05/[address] [facility] Left: Foot [employer] 4933-1-712 / / 7.0 Headless Screw Explanted:Qty: 1 on 01/14/[address] [facility] Left: Foot [employer] [id number] / / Insurance ANTH Advance Directives * Full Code (Latest Code Status on File) Date Activated Date Inactivated Comments 11/05/2022 3:06 PM 11/07/2022 1:36 PM Care Teams Certified Pediatric Nurse Practitioner Relationship Specialty Start Date End Date Susan Chisholm DO [address] [place] [address] PCP - General Family Medicine 12/31/22
[2025-06-10 21:45] LABS: Hematocrit 32.5 % (42.0-52.0); Hemoglobin 11.3 g/dL (14.0-18.0); Immature Granulocyte Percent A 0.7 % (0-0.5); Lymphocytes Absolute Auto 0.81 K/mm3 (0.9-3.2); Mean Corpuscular HGB Conc 34.8 g/dl (32-36); Mean Corpuscular Hemoglobin 29.6 pg (26-34); Mean Corpuscular Volume 85.1 fl (80-100); Nucleated Red Blood Cells Absolute Auto 0.000 K/mm3 (0.0-0.012); Nucleated Red Blood Cells Perc 0.0 % (0.0-0.2); Platelet Count Result 286 k/mm3 (150-375); Red Blood Count 3.82 M/mm3 (4.6-6.20); White Blood Count 7.6 K/mm3 (4.5-10.0)
[2025-06-10 21:55] LABS: Magnesium 1.7 mg/dL (1.6-2.3)
[2025-06-10 21:58] LABS: Alanine Aminotransferase 22 U/L (6-50); Albumin Level 3.6 g/dL (3.5-5.1); Alkaline Phosphatase 73 U/L (38-126); Anion Gap 9 mmol/L (4-12); Aspartate Amino Transferase 35 U/L (17-59); Bilirubin,Total 1.3 mg/dL (0.2-1.3); Blood Urea Nitrogen 31 mg/dL (9-20); Calcium 8.0 mg/dL (8.4-10.2); Carbon Dioxide 31 mmol/L (22-30); Chloride 77 mmol/L (98-107); Estimated CRCL calculation 41 ml/min; Estimated Glomerular Filt Rate 29; Glucose 121 mg/dL (65-110); Potassium 2.5 mmol/L (3.4-5.0); Sodium 117 mmol/L (137-145); Total Protein 6.8 g/dL (6.3-8.2)
--- NOTE | 2025-06-10 22:11 | PC.NURSE ---
Patient has a total of 2L NS bolus infused. 1L was ordered by ERP and 1L infused from EMS. ERP notified.
--- NOTE | 2025-06-10 22:30 | ED.GENADULT ---
HPI - General Adult General Chief complaint: Weakness Stated complaint: Weak/dizzy Time Seen by Provider: 06/10/25 21:03 History of Present Illness HPI narrative: Patient is a 65-year-old male who presents emergency department this evening complaining of lightheadedness and hypotension. Patient states the lightheadedness is worse when he gets up from a seated position. Admits that he has not been eating or drinking much lately and admits that he did have a near syncopal episodes earlier today. Patient states that he has not been taking his blood pressure medication throughout the past week due to side effects but also since his blood pressure has been low given his decreased p.o. intake. Denies any chest pain or shortness of breath, admits that he does have chronic sinusitis. Denies any recent illness, fevers or chills. Related Data Home Medications ?Medication ?Instructions ?Recorded ?Confirmed ?Last Taken ?Type aspirin 81 mg tablet,delayed 81 mg PO DAILY 10/22/22 05/28/25 Unknown History release (Adult Low Dose Aspirin) silver sulfadiazine 1 % topical applic topical 10/26/23 05/28/25 Unknown History cream (SSD) Allergies Allergy/AdvReac Type Severity Reaction Status Date / Time lisinopril Allergy Severe angioedema Verified 06/10/25 20:37 Review of Systems Review of Systems: All systems are reviewed and are negative unless stated otherwise in the HPI. [facility] Past Medical History Medical History BMI 39.0-39.9,adult Screening for colon cancer Vitamin D deficiency Diabetic foot ulcer Charcot ankle (~10/2022) Skin cancer Removed from chest 09/2022 Essential (primary) hypertension Mixed hyperlipidemia Obesity, unspecified Type 2 diabetes mellitus with hyperglycemia Surgical History Surgical History History of foot surgery Left foot- October 2023 H/O cataract extraction Family History Family History Grandparent Diabetes mellitus Mother Hypertension Family history of osteoarthritis DVT (deep venous thrombosis) Father Family history of malignant neoplasm of urinary bladder Other Family history of Alzheimer's disease Family history of lung cancer Malignant neoplasm of prostate No family history of malignant neoplasm Social History Social History Smoking status: Never smoker Second hand tobacco smoke exposure: No Alcohol intake: current Do You Feel Safe in your Home?: Yes Lack of Transportation: No Lack of Food: Never True Current Housing: I Have Housing Concerned About Future Housing: No Difficulty Paying Gas/Electric Bills: No Difficulty Paying for Meds: No Currently Unemployed: No Education: High School Diploma/GED Difficulty w/ Childcare or Family Care: No Exam Narrative: General: Alert, awake, afebrile, in no acute distress. HEENT: PERRL, no rhinorrhea, no post nasal drip, oropharynx clear. Neck: Trachea midline, no JVD, no lymphadenopathy. Cardiovascular: Regular rate and rhythm, no murmurs, rubs or gallops, no peripheral edema. Respiratory: Clear to auscultation bilaterally, no tachypnea, no wheezing, no rhonchi, no rubs, no respiratory distress. Abdomen: Soft, nontender, nondistended, no rebound, no guarding, no peritoneal signs. Musculoskeletal: No joint swelling or deformity, normal muscle tone. Skin: No rashes or petechia, no signs of infection. Psychiatric: Alert and oriented, normal behavior and judgment for situation. Neurological: Alert and oriented to person, place, and time. Follows all commands. No focal deficits, speech is clear and fluent. Course Vital Signs Vital signs: Vital Signs Temperature 98.2 F 06/10/25 20:31 Pulse Rate 81 06/10/25 20:31 Respiratory Rate 17 06/10/25 20:31 Blood Pressure 134/57 L 06/10/25 20:31 Pulse Oximetry 97 06/10/25 20:31 Oxygen Delivery Room Air 06/10/25 20:31 Temperature 98.2 F 06/10/25 20:31 Pulse Rate 75 06/10/25 23:39 Respiratory Rate 17 06/10/25 23:39 Blood Pressure 128/45 L 06/10/25 23:39 Pulse Oximetry 100 06/10/25 23:39 Oxygen Delivery Room Air 06/10/25 20:40 Medical Decision Making MDM Narrative Medical decision making narrative: The patient was evaluated by myself in the emergency department. History is obtained from patient who is an independent historian and physical exam was performed. External medical records were reviewed at this time. IV was established and pertinent tests were ordered. Patient was administered 1 L IV fluid bolus with normal saline. EKG was obtained which revealed sinus rhythm rate of 77 beats per minute, no evidence of acute ischemia. EKG was independently interpreted by me and is currently pending official cardiology read. Laboratory results obtained revealing a sodium level of 117 and a potassium of 2.5. Patient states that his potassium is always slow and when asked regarding his sodium level, states that he does not eat salt at all due to his history of high blood pressure and him knowing that salt is not good for him. Patient also admits that he has not been eating or drinking much lately anyways. Admits to drinking moderate amounts of beer every other day. BUN 31, creatinine 2.27 which is slightly higher than patient's baseline creatinine. Per chart review, patient's last 2 documented sodium levels were noted to be 128 and 132 throughout the past few years. Viral swabs negative for COVID/influenza/RSV. Imaging studies obtained included CXR which was independently interpreted by me revealing no acute process, which is pending final radiology interpretation. Differential diagnosis considerations include dehydration, electrolyte derangements, acute kidney injury, acute viral syndrome. Comorbidities impacting this visit include none. I have evaluated and discussed social determinants of health with the patient that could potentially impact subsequent diagnosis and treatment plans. On repeat assessment of the patient, reevaluation revealed that the patient is doing well and is in no acute distress. Patient symptoms have improved since he arrived to our emergency department. Repeat vital signs were all reviewed and noted to be stable. Differential diagnosis and treatment plan were discussed with the patient at bedside. Patient agrees with discussion and after shared medical decision making agrees with admission. All questions were answered to the patient's satisfaction. Vital Signs Vital Signs: Vital Signs Temperature 98.2 F 06/10/25 20:31 Pulse Rate 81 06/10/25 20:31 Respiratory Rate 17 06/10/25 20:31 Blood Pressure 134/57 L 06/10/25 20:31 Pulse Oximetry 97 06/10/25 20:31 Oxygen Delivery Room Air 06/10/25 20:31 Temperature 98.2 F 06/10/25 20:31 Pulse Rate 75 06/10/25 23:39 Respiratory Rate 17 06/10/25 23:39 Blood Pressure 128/45 L 06/10/25 23:39 Pulse Oximetry 100 06/10/25 23:39 Oxygen Delivery Room Air 06/10/25 20:40 Lab Data 06/10/25 21:36 06/10/25 21:36 Labs: Lab Results 06/10/25 06/10/25 Range/Units 21:36 22:01 WBC 7.6 (4.5-10.0) K/mm3 RBC 3.82 L (4.6-6.20) M/mm3 Hgb 11.3 L (14.0-18.0) g/dL Hct 32.5 L (42.0-52.0) % MCV 85.1 (80-100) fl MCH 29.6 (26-34) pg MCHC 34.8 (32-36) g/dl RDW 12.5 (11.5-14.5) % Plt Count 286 (150-375) k/mm3 MPV 8.8 (7.4-10.4) fl Immature Gran % (Auto) 0.7 H (0-0.5) % Neut % (Auto) 77.5 H (45.5-73.1) % Lymph % (Auto) 10.7 L (18.3-44.2) % [place] % (Auto) 10.5 H (2.6-8.5) % Eos % (Auto) 0.5 (0-4.4) % Baso % (Auto) 0.1 L (0.2-1.2) % Lymph # (Auto) 0.81 L (0.9-3.2) K/mm3 [place] # (Auto) 0.8 H (0.1-0.6) K/mm3 Eos # (Auto) 0.0 (0-0.3) K/mm3 Baso # (Auto) 0.0 (0.0-0.1) K/mm3 Abs Immat Gran (auto) 0.05 H (0.00-0.031) K/mm3 Absolute Neuts (auto) 5.9 (1.3-6.7) K/mm3 Absolute Nucleated RBC 0.000 (0.0-0.012) K/mm3 Nucleated RBC % 0.0 (0.0-0.2) % Sodium 117 L* (137-145) mmol/L Potassium 2.5 L* (3.4-5.0) mmol/L Chloride 77 L (98-107) mmol/L Carbon Dioxide 31 H (22-30) mmol/L Anion Gap 9 (4-12) mmol/L BUN 31 H (9-20) mg/dL Creatinine 2.27 H (0.7-1.3) mg/dL Estim Creat Clear Calc 41 ml/min Estimated GFR 29 L (59 - ) Glucose 121 H (65-110) mg/dL Calcium 8.0 L (8.4-10.2) mg/dL Magnesium 1.7 (1.6-2.3) mg/dL Total Bilirubin 1.3 (0.2-1.3) mg/dL AST 35 (17-59) U/L ALT 22 (6-50) U/L Alkaline Phosphatase 73 (38-126) U/L Total Protein 6.8 (6.3-8.2) g/dL Albumin 3.6 (3.5-5.1) g/dL Influenza A (RT-PCR) Negative (Negative) Influenza B (RT-PCR) Negative (Negative) RSV (RT-PCR) Negative (Negative) SARS-CoV-2 RNA (RT-PCR) Negative (Negative) Discharge Plan Discharge Clinical Impression: ANASTACIA (acute kidney injury), Acute hyponatremia, Acute hypokalemia Patient Disposition: Still a Patient Condition: Improved Time of Disposition: 22:45
[2025-06-10 22:44] LABS: Influenza A QL RT-PCR Negative (Negative); Influenza B QL RT-PCR Negative (Negative); RSV RNA, RT-PCR Negative (Negative); SARS-CoV-2 RNA PCR Negative (Negative)
[2025-06-10] MEDS: POTASSIUM CHLORIDE 20 MEQ ER TABLET 40 MEQ PO (22:47)
[2025-06-10] MEDS: POTASSIUM CHLORIDE 20 MEQ PACKET (FOR LIQUID) 40 MEQ PO (22:47)
[2025-06-10] MEDS: MAGNESIUM SULF 2 GM/WATER 50ML 2 GM/50 ML BAG IVPB (22:47)
[2025-06-11] VITALS (10 sets, daily range): BP systolic 109–150; BP diastolic 40–84; PULSE 66–77; RESP 16–19; TEMP 36.2–36.7; O2SAT 95–100; BMI 39.7
--- NOTE | 2025-06-11 00:36 | PM.IMHP ---
H&P: HPI History of Present Illness Date/Time: 06/11/25 00:36 Chief Complaint: Weakness and dizziness with standing Narrative: 65-year-old male with a past medical history of obesity, insulin-dependent diabetes mellitus (since age 24) complicated by peripheral neuropathy/Charcot deformity, chronic kidney disease, and hyperlipidemia who presented to the ER from home via EMS due to weakness and lightheadedness with standing. He had a near syncopal episode earlier today and had to slide down to his buttocks but denies injury. He has generally not felt well for several days. He has had poor appetite. He reported that he feels like he has some increased sinus congestion. Per EMS documentation the patient's glucose was 142, blood pressures 82/44 pulse 80 and normal oxygen saturations on room air. The patient received 1 L normal saline per EMS and blood pressures on arrival to the ER or . He was given an additional 1 L of IV fluids and labs were drawn. Labs demonstrated hyponatremia hypokalemia and acute kidney injury. The patient had not produced urine specimen as of yet. The patient received a total of 80 of p.o. potassium and 2 g magnesium sulfate rider. I requested orthostatic vital signs be performed which demonstrated orthostatic hypotension when going from sitting to standing. He does admit that he has had some decreased urine output recently. He denies any dysuria or hematuria. He denies weak urine stream. The patient was subsequently admitted for further treatment in the setting. Patient has an insulin pump in his last A1c was 6.0 on 05/28/2025. His last TSH 01/12/2025 was 1.89. Review of Systems Review of Systems: 12 systems were reviewed with pertinent positives and negatives per HPI. Except as documented in the HPI, all other systems were reviewed and are negative. 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] Allergic rhinitis due to pollen Vitamin D deficiency Diabetic foot ulcer Charcot ankle (~10/2022) Skin cancer Removed from chest 09/2022 Essential (primary) hypertension Mixed hyperlipidemia Obesity, unspecified Surgical History Surgical History History of foot surgery Left foot- October 2023 H/O cataract extraction Family History Family History Grandparent Diabetes mellitus Mother Hypertension Family history of osteoarthritis DVT (deep venous thrombosis) Father Family history of malignant neoplasm of urinary bladder Other Family history of Alzheimer's disease Family history of lung cancer Malignant neoplasm of prostate No family history of malignant neoplasm Social History Social History (Updated 06/11/25 @ 07:58 by Lanette Garcia DO) Social History: The patient lives with his of 36 years. They have 1 son. The patient is chewed tobacco since 1979. He denies any history of smoking. He drinks in moderation on occasion. He denies illicit substance use. 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 Code status: Full code (he would not want long-term ventilation, tracheostomy the feeding tube) Surrogate decision maker: Farrukh (son) Smoking status: Never smoker Second hand tobacco smoke exposure: No Alcohol intake: current Drinks per week: 2 Substance use: never Substance use type: does not use Last use: drinks a couple beers a week Do You Feel Safe in your Home?: Yes Lack of Transportation: No Lack of Food: Never True Current Housing: I Have Housing Concerned About Future Housing: No Difficulty Paying Gas/Electric Bills: No Difficulty Paying for Meds: No Currently Unemployed: No Education: High School Diploma/GED Difficulty w/ Childcare or Family Care: No Spiritual care concerns: No Meds Home Medications and Allergies Home Medications ?Medication ?Instructions ?Recorded ?Confirmed ?Type aspirin 81 mg tablet,delayed 81 mg PO DAILY 10/22/22 06/11/25 History release (Adult Low Dose Aspirin) gabapentin 300 mg capsule 300 mg PO TID PRN nerve pain, back 10/17/24 06/11/25 Rx pain, foot pain #90 caps cholecalciferol (vitamin D3) 1,250 1,250 mcg PO WEEKLY #12 caps 01/16/25 06/11/25 Rx mcg (50,000 unit) capsule tirzepatide 15 mg/0.5 mL 15 mg (0.5 mL) subcut WEEKLY #6 mL 01/25/25 06/11/25 Rx subcutaneous pen injector (Mounjaro) insulin pump cart,auto,BT,G6/7 #45 ea 02/14/25 06/11/25 Rx (Omnipod 5 G6-G7 Pods (Gen 5) subcutaneous cartridge) furosemide 20 mg tablet 20 mg PO QAM #90 tabs 04/12/25 06/11/25 Rx hydrochlorothiazide 25 mg tablet 25 mg PO DAILY #90 tabs 04/12/25 06/11/25 Rx atorvastatin 20 mg tablet 20 mg PO DAILY 90 days #90 tabs 04/13/25 06/11/25 Rx blood-glucose sensor (Dexcom G7 #9 ea 05/10/25 06/11/25 Rx Sensor device) olmesartan 5 mg tablet 5 mg PO DAILY #90 tabs 05/28/25 06/11/25 Rx insulin pump cartridge,auto 06/11/25 06/11/25 History dose,BT,G6/G7 with controller subcutaneous (Omnipod 5 G6-G7 Intro Kit(Gen 5) subcutaneous cartridge and controller) Allergies Allergy/AdvReac Type Severity Reaction Status Date / Time lisinopril Allergy Severe angioedema Verified 06/10/25 20:37 Vital Signs Vital Signs - 24 hr 06/10/25 20:31 06/10/25 20:36 06/10/25 20:38 Temperature 98.2 F Pulse Rate 81 79 79 Respiratory Rate 17 12 Blood Pressure 134/57 L Pulse Oximetry 97 98 Oxygen Delivery Room Air 06/10/25 20:40 06/10/25 20:45 06/10/25 20:46 Temperature Pulse Rate 79 82 Respiratory Rate 25 H 21 H Blood Pressure 99/70 L Pulse Oximetry 97 95 96 Oxygen Delivery Room Air 06/10/25 21:15 06/10/25 21:30 06/10/25 21:45 Temperature Pulse Rate 76 78 78 Respiratory Rate 15 13 15 Blood Pressure Pulse Oximetry 94 Oxygen Delivery 06/10/25 21:47 06/10/25 22:00 06/10/25 22:01 Temperature Pulse Rate 78 78 77 Respiratory Rate 17 18 14 Blood Pressure 111/48 L 110/46 L Pulse Oximetry 97 100 100 Oxygen Delivery 06/10/25 22:15 06/10/25 22:30 06/10/25 22:31 Temperature Pulse Rate 77 76 75 Respiratory Rate 16 14 16 Blood Pressure 109/49 L Pulse Oximetry 100 99 97 Oxygen Delivery 06/10/25 22:59 06/10/25 23:00 06/10/25 23:00 Temperature Pulse Rate 76 78 84 Respiratory Rate Blood Pressure 113/53 L 117/63 93/54 L Pulse Oximetry Oxygen Delivery 06/10/25 23:39 Temperature Pulse Rate 75 Respiratory Rate 17 Blood Pressure 128/45 L Pulse Oximetry 100 Oxygen Delivery Exam Narrative: Weight 125.8 kg BMI 37.6 Const: Other: Obese, no acute distress, snoring quite loudly when I 1st entered the room with witnessed apnea HENMT: Other: Mucous membranes are tacky, no oral pharyngeal erythema, markedly crowded posterior oropharynx Eyes: Other: Pupils are equal and reactive, no scleral icterus, no conjunctival pallor Neck: Other: Large neck circumference, no JVD Resp: Other: Clear to auscultation bilaterally, no increased work of breathing Cardio: Other: Regular rate, regular rhythm, 2+ bilateral radial pedal pulses GI: Other: Obese, soft, nontender Skin: Other: No jaundice, no pallor Neuro: Other: Alert oriented x4, speech is clear, no facial asymmetry, no localizing neurologic deficits noted during course of conversation Extrem: Other: No clubbing, cyanosis or edema, bilateral joint foot deformities due to Charcot arthropathy no foot wounds Psych: Other: Appropriate mood and affect, pleasant and cooperative, judgment and insight intact H&P: Results Labs Labs: Laboratory Tests 06/10/25 21:36 06/10/25 21:36 06/10/25 06/10/25 06/11/25 21:36 22:01 00:40 WBC 7.6 RBC 3.82 L Hgb 11.3 L Hct 32.5 L MCV 85.1 MCH 29.6 MCHC 34.8 RDW 12.5 Plt Count 286 MPV 8.8 Immature Gran % (Auto) 0.7 H Neut % (Auto) 77.5 H Lymph % (Auto) 10.7 L [place] % (Auto) 10.5 H Eos % (Auto) 0.5 Baso % (Auto) 0.1 L Lymph # (Auto) 0.81 L [place] # (Auto) 0.8 H Eos # (Auto) 0.0 Baso # (Auto) 0.0 Abs Immat Gran (auto) 0.05 H Absolute Neuts (auto) 5.9 Absolute Nucleated RBC 0.000 Nucleated RBC % 0.0 Sodium 117 L* Potassium 2.5 L* Chloride 77 L Carbon Dioxide 31 H Anion Gap 9 BUN 31 H Creatinine 2.27 H Estim Creat Clear Calc 41 Estimated GFR 29 L Glucose 121 H POC Capillary Glucose 131 H Calcium 8.0 L Magnesium 1.7 Total Bilirubin 1.3 AST 35 ALT 22 Alkaline Phosphatase 73 Total Protein 6.8 Albumin 3.6 Influenza A (RT-PCR) Negative Influenza B (RT-PCR) Negative RSV (RT-PCR) Negative SARS-CoV-2 RNA (RT-PCR) Negative Chest x-ray: On my review no acute cardiopulmonary process. Radiologic interpretation pending EKG: Date 2025-06-10 20:38:12 Measurements Intervals [place] Rate: 77 P: 7 WA: 239 QRS: 8 QRSD: 115 T: 45 QT: 291 QTc: 331 Interpretive Statements SINUS RHYTHM WITH FIRST DEGREE AV BLOCK INTRAVENTRICULAR CONDUCTION DELAY NONSPECIFIC T-WAVE ABNORMALITY Assessment and Plan Assessment and plan (1) Acute kidney injury superimposed on chronic kidney disease: Code(s): N17.9 - Acute kidney failure, unspecified; N18.9 - Chronic kidney disease, unspecified Status: Acute (2) Dehydration with hyponatremia: Code(s): E86.0 - Dehydration; E87.1 - Hypo-osmolality and hyponatremia Status: Acute (3) Acute hyponatremia: Code(s): E87.1 - Hypo-osmolality and hyponatremia Status: Acute (4) Acute hypokalemia: Code(s): E87.6 - Hypokalemia Status: Acute (5) Orthostatic hypotension: Code(s): I95.1 - Orthostatic hypotension Status: Acute (6) Controlled diabetes mellitus type 1 with complications: Code(s): E10.8 - Type 1 diabetes mellitus with unspecified complications Status: Acute Plan Patient presents with orthostatic hypotension due to hypovolemia and dehydration. Patient received 1 L fluid bolus per EMS and 1 L in the ER. I requested a 3 L be given in the ER. The patient was finally able to produce urine 1.5 hours after arriving to the medical floor. Urine is is now being sent to lab for analysis. The patient's repeat BMP is demonstrating adequate upward trend in sodium. Will continue IV fluid hydration with normal saline at 125 mL an hour with serial BMPs Q 4 hours. Hyponatremia is likely multifactorial due to intravascular volume depletion/dehydration and hydrochlorothiazide use. The patient does have some component of chronic hyponatremia and would benefit from not being placed back on hydrochlorothiazide on discharge. Patient does have acute on chronic kidney injury again due to hypovolemia. Although patient has had a significant improvement in his creatinine from the initial 1 obtained in the ER. Will again hold diuretics but will continue patient's home angiotensin receptor chelsea. Patient had significant hypokalemia in the ER but potassium has normalized after 80 mEq of oral replacement. Patient's magnesium level was lower limit of normal and he received 2 g magnesium sulfate rider in ER are. Will repeat magnesium with a.m. labs and will also check a phosphorus level. The patient has type 1 diabetes with good glycemic control. Patient may continue wearing his continuous glucose monitor and insulin pump. Will place patient on a consistent carbohydrate diet. Will add low-dose sliding scale insulin as needed with hypoglycemia protocol. MEDICAL DECISION MAKING NARRATIVE -Spoke with the ED provider in detail regarding patient's evaluation, workup and management -Patient seen and examined at bedside -Collaborated with patient's nurse at the bedside in detail and addressed all concerns -Labs, electrolytes, radiology, investigations and test results personally reviewed and interpreted unless otherwise specified -ED/Consult/Nursing/Ancilliary notes on the chart reviewed and appreciated -Spoke with patient at bedside and diagnosis and plan of care was discussed. All questions answered. Quality VTE Prophylaxis VTE prophylaxis: pharmacologic ordered (Lovenox 40 mg subQ daily.) Hospitalist [facility] Advance Care Plan I have confirmed that the patient's Advanced Care Plan is present, code status is documented, or surrogate decision maker is listed in patient medical record.: Yes Medication Reconciliation I have utilized all available resources to obtain, update and review the patients current medications (includes all prescriptions, OTC, herbals, cannabis, and nutritional supplements).: Yes
[2025-06-11 02:30] LABS: Anion Gap 11 mmol/L (4-12); Blood Urea Nitrogen 30 mg/dL (9-20); Calcium 7.8 mg/dL (8.4-10.2); Carbon Dioxide 25 mmol/L (22-30); Chloride 83 mmol/L (98-107); Estimated CRCL calculation 48 ml/min; Estimated Glomerular Filt Rate 37; Glucose 139 mg/dL (65-110); Potassium 3.5 mmol/L (3.4-5.0); Sodium 119 mmol/L (137-145)
[2025-06-11] MEDS: SODIUM CHLORIDE 0.9% IV 1,000 ML 125 ML IV CONT ×3 (03:19→23:47)
[2025-06-11 03:27] LABS: Add Urine Microscopic? YES; Appearance Urine Cloudy (Clear); Glucose Urine UA Negative (Negative); Leukocyte Esterase Ur Negative LEU/UL (Negative); Nitrate Urine Negative (Negative); Specific Grav Ur 1.008 (1.001-1.035)
[2025-06-11] MEDS: ASPIRIN 81 MG ENTERIC TABLET PO (08:50)
[2025-06-11] MEDS: ATORVASTATIN 20 MG TABLET PO (08:50)
[2025-06-11] MEDS: OLMESARTAN MEDOXOMIL 5 MG TABLET PO (08:51)
[2025-06-11] MEDS: MAGNESIUM SULF 1 GM/D5W 100 ML 1 GM/100 ML BAG IVPB ×2 (08:54→10:57)
--- NOTE | 2025-06-11 08:54 | PM.IMPN ---
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 Hyponatremia On admission, Na 117, likely secondary to poor oral intake in the setting of GLP1 agonist medication No history of hyponatremia, no history of liver cirrhosis After IV fluid resuscitation sodium improved to 120s and k 3.5 from 2.5 Follow serum osmolarity, urine osmolarity, and urine random sodium This labs might be affected by diuretics which patient takes daily Hold GLP1R agonist Goal 8-10 mEq increase per 24 hours BMP Q 4 hours Please contact the physician if sodium increases by 10 meq over 24 hours 2. Hypokalemia-improved 3. Hypo magnesemia-improved 4. Morbid obesity Patient takes daily P 1 receptor [id number] until his oral intake improves 5. Hypertension Hold furosemide, and hydrochlorothiazide BP goal<130/80 Resume Olmesartan Time Spent With Patient Time: 35 minutes Subjective Date/time seen: 06/11/25 08:54 Interval history: Surrounded by his son and his . He is feeling much better. His oral intake is improved. He denies lightheadedness. Denies nausea or vomiting. Exam Narrative: APPEARANCE: No acute distress, obese EYES: EOMI HEENT: Normocephalic, atraumatic, OMM RESPIRATORY: No respiratory distress Clear to auscultation bilaterally with no rhonchi wheezing or rales. CARDIOVASCULAR: RRR, S1 and S2 without murmurs rubs or gallops. ABDOMINAL: Abdominal distension but Soft, nontender, nondistended, no rebound or guarding MUSCULOSKELETAl: Limited by his foot anomaly NEURO: Awake and alert. Following commands, speech normal, no focal deficits SKIN:: Warm, dry. No rashes lesions or abrasions PSYCHIATRIC: Normal affect/mood Objective Data Vital Signs Vital Signs: Vital Signs - 24 hr 06/10/25 20:31 06/10/25 20:36 06/10/25 20:38 Temperature 36.8 C Pulse Rate 81 79 79 Respiratory Rate 17 12 Blood Pressure 134/57 L Pulse Oximetry 97 98 Oxygen Delivery Room Air 06/10/25 20:40 06/10/25 20:45 06/10/25 20:46 Temperature Pulse Rate 79 82 Respiratory Rate 25 H 21 H Blood Pressure 99/70 L Pulse Oximetry 97 95 96 Oxygen Delivery Room Air 06/10/25 21:15 06/10/25 21:30 06/10/25 21:45 Temperature Pulse Rate 76 78 78 Respiratory Rate 15 13 15 Blood Pressure Pulse Oximetry 94 Oxygen Delivery 06/10/25 21:47 06/10/25 22:00 06/10/25 22:01 Temperature Pulse Rate 78 78 77 Respiratory Rate 17 18 14 Blood Pressure 111/48 L 110/46 L Pulse Oximetry 97 100 100 Oxygen Delivery 06/10/25 22:15 06/10/25 22:30 06/10/25 22:31 Temperature Pulse Rate 77 76 75 Respiratory Rate 16 14 16 Blood Pressure 109/49 L Pulse Oximetry 100 99 97 Oxygen Delivery 06/10/25 22:59 06/10/25 23:00 06/10/25 23:00 Temperature Pulse Rate 76 78 84 Respiratory Rate Blood Pressure 113/53 L 117/63 93/54 L Pulse Oximetry Oxygen Delivery 06/10/25 23:39 06/11/25 00:38 06/11/25 04:00 Temperature 36.2 C L Pulse Rate 75 77 75 Respiratory Rate 17 16 Blood Pressure 128/45 L 150/84 H Pulse Oximetry 100 98 Oxygen Delivery 06/11/25 04:14 06/11/25 07:33 Temperature 36.4 C L 36.3 C L Pulse Rate 77 72 Respiratory Rate 16 17 Blood Pressure 112/40 L 116/58 L Pulse Oximetry 100 100 Oxygen Delivery Intake/Output Intake/Output: Intake & Output 06/08/25 06/09/25 06/10/25 06/11/25 23:59 23:59 23:59 23:59 Intake Total 3000 1790 Output Total 300 Balance 3000 1490 Meds/Results Medications: Active Medications Generic Name Dose Route Start Last Admin Trade Name Joriq PRN Reason Stop Dose Admin Aspirin 81 mg 06/11/25 09:00 06/11/25 08:50 Aspirin 81 Mg Enteric Tablet PO 81 mg DAILY FELIX Administration Atorvastatin Calcium 20 mg 06/11/25 09:00 06/11/25 08:50 Atorvastatin 20 Mg Tablet PO 20 mg DAILY FELIX Administration Dextrose 12.5 gm 06/11/25 01:18 Dextrose 50% 25 Gm/50 Ml Syringe IV PUSH PRN PRN Hypoglycemia Protocol Enoxaparin Sodium 40 mg 06/11/25 09:00 06/11/25 08:51 Enoxaparin 40 Mg/0.4 Ml Syringe SUB-Q 40 mg DAILY FELIX Administration Ergocalciferol 1,250 mcg 06/14/25 09:00 Ergocalciferol (Vitamin D2) 1,250 Mcg (50,000 Units) Capsule PO WEEKLY FELIX Gabapentin 300 mg 06/11/25 01:14 Gabapentin 300 Mg Capsule PO TID PRN nerve pain, back pain, foot pain Glucagon 1 mg 06/11/25 01:18 Glucagon For Inj 1 Mg Vial IM PRN PRN Hypoglycemia Protocol Glucose 15 gm 06/11/25 01:18 Glucose Oral Gel 15 Gm Of Glucse In 37.5 Gm Tube PO PRN PRN Hypoglycemia Protocol Dextrose 1,000 mls @ 100 mls/hr 06/11/25 01:18 Dextrose 5% 1,000 Ml IVPB PRN PRN Hypoglycemia Protocol Sodium Chloride 1,000 mls @ 125 mls/hr 06/11/25 02:40 06/11/25 03:19 Normal Saline Iv IV CONT 125 mls/hr .Q8H FELIX Administration Magnesium Sulfate/Dextrose 1 gm in 100 mls @ 100 mls/hr 06/11/25 08:50 Magnesium Sulf 1 Gm/D5w 100 Ml IVPB 06/11/25 09:49 ONCE ONE Insulin Aspart 2 - 5 units 06/11/25 08:00 06/11/25 08:48 Insulin Aspart (*Bkc) 100 Units/Ml SUB-Q Not Given TIDWM FELIX Protocol Olmesartan 5 mg 06/11/25 09:00 06/11/25 08:51 Olmesartan Medoxomil 5 Mg Tablet PO 5 mg DAILY FELIX Administration Radiology Results: ITS Impressions Chest X-Ray 06/11/25 06:49 IMPRESSION: 1. No acute cardiopulmonary findings. Labs Labs: Laboratory Results - last 24 hr 06/10/25 06/10/25 06/11/25 21:36 22:01 00:40 WBC 7.6 RBC 3.82 L Hgb 11.3 L Hct 32.5 L MCV 85.1 MCH 29.6 MCHC 34.8 RDW 12.5 Plt Count 286 MPV 8.8 Immature Gran % (Auto) 0.7 H Neut % (Auto) 77.5 H Lymph % (Auto) 10.7 L [place] % (Auto) 10.5 H Eos % (Auto) 0.5 Baso % (Auto) 0.1 L Lymph # (Auto) 0.81 L [place] # (Auto) 0.8 H Eos # (Auto) 0.0 Baso # (Auto) 0.0 Abs Immat Gran (auto) 0.05 H Absolute Neuts (auto) 5.9 Absolute Nucleated RBC 0.000 Nucleated RBC % 0.0 Sodium 117 L* Potassium 2.5 L* Chloride 77 L Carbon Dioxide 31 H Anion Gap 9 BUN 31 H Creatinine 2.27 H Estim Creat Clear Calc 41 Estimated GFR 29 L Glucose 121 H POC Capillary Glucose 131 H Calcium 8.0 L Phosphorus Magnesium 1.7 Total Bilirubin 1.3 AST 35 ALT 22 Alkaline Phosphatase 73 Total Protein 6.8 Albumin 3.6 Urine Color Urine Appearance Urine pH Ur Specific [place] Urine Protein Urine Glucose (UA) Urine Ketones Ur Blood (Man) Urine Nitrate Urine Bilirubin Urine Urobilinogen Leukocyte Esterase Rfl Urine RBC Urine WBC Ur Squamous Epith Cells Urine Bacteria Urine Casts Influenza A (RT-PCR) Negative Influenza B (RT-PCR) Negative RSV (RT-PCR) Negative SARS-CoV-2 RNA (RT-PCR) Negative 06/11/25 06/11/25 06/11/25 02:01 02:01 02:47 WBC RBC Hgb Hct MCV MCH MCHC RDW Plt Count MPV Immature Gran % (Auto) Neut % (Auto) Lymph % (Auto) [place] % (Auto) Eos % (Auto) Baso % (Auto) Lymph # (Auto) [place] # (Auto) Eos # (Auto) Baso # (Auto) Abs Immat Gran (auto) Absolute Neuts (auto) Absolute Nucleated RBC Nucleated RBC % Sodium 119 L* Potassium 3.5 Chloride 83 L Carbon Dioxide 25 Anion Gap 11 BUN 30 H Creatinine 1.86 H Estim Creat Clear Calc 48 Estimated GFR 37 L Glucose 139 H POC Capillary Glucose Calcium 7.8 L Phosphorus 3.4 Cancelled Magnesium Total Bilirubin AST ALT Alkaline Phosphatase Total Protein Albumin Urine Color Yellow Urine Appearance Cloudy H Urine pH 5.5 Ur Specific [place] 1.008 Urine Protein Negative Urine Glucose (UA) Negative Urine Ketones Trace H Ur Blood (Man) Negative Urine Nitrate Negative Urine Bilirubin Negative Urine Urobilinogen 0.2 Leukocyte Esterase Rfl Negative Urine RBC 0-2 Urine WBC 0-5 Ur Squamous Epith Cells None seen Urine Bacteria None seen Urine Casts 3-5 Influenza A (RT-PCR) Influenza B (RT-PCR) RSV (RT-PCR) SARS-CoV-2 RNA (RT-PCR) 06/11/25 06/11/25 06:39 07:33 WBC RBC Hgb Hct MCV MCH MCHC RDW Plt Count MPV Immature Gran % (Auto) Neut % (Auto) Lymph % (Auto) [place] % (Auto) Eos % (Auto) Baso % (Auto) Lymph # (Auto) [place] # (Auto) Eos # (Auto) Baso # (Auto) Abs Immat Gran (auto) Absolute Neuts (auto) Absolute Nucleated RBC Nucleated RBC % Sodium Potassium Chloride Carbon Dioxide Anion Gap BUN Creatinine Estim Creat Clear Calc Estimated GFR Glucose POC Capillary Glucose 124 H Calcium Phosphorus Cancelled Magnesium Total Bilirubin AST ALT Alkaline Phosphatase Total Protein Albumin Urine Color Urine Appearance Urine pH Ur Specific [place] Urine Protein Urine Glucose (UA) Urine Ketones Ur Blood (Man) Urine Nitrate Urine Bilirubin Urine Urobilinogen Leukocyte Esterase Rfl Urine RBC Urine WBC Ur Squamous Epith Cells Urine Bacteria Urine Casts Influenza A (RT-PCR) Influenza B (RT-PCR) RSV (RT-PCR) SARS-CoV-2 RNA (RT-PCR) Quality VTE Prophylaxis VTE prophylaxis: pharmacologic ordered (Lovenox 40 mg subQ daily.)
[2025-06-11 09:00] LABS: Anion Gap 5 mmol/L (4-12); Blood Urea Nitrogen 27 mg/dL (9-20); Calcium 7.8 mg/dL (8.4-10.2); Carbon Dioxide 32 mmol/L (22-30); Chloride 84 mmol/L (98-107); Estimated CRCL calculation 55 ml/min; Estimated Glomerular Filt Rate 43; Glucose 150 mg/dL (65-110); Potassium 3.0 mmol/L (3.4-5.0); Sodium 121 mmol/L (137-145)
[2025-06-11] MEDS: ENOXAPARIN 40 MG/0.4 ML SYRINGE SUB-Q (10:11)
[2025-06-11] MEDS: POTASSIUM CHLORIDE 20 MEQ ER TABLET 40 MEQ PO (10:54)
[2025-06-11] MEDS: POTASSIUM CHLORIDE 10 MEQ ER TABLET PO (10:54)
[2025-06-11 13:15] LABS: Anion Gap 5 mmol/L (4-12); Blood Urea Nitrogen 26 mg/dL (9-20); Calcium 7.8 mg/dL (8.4-10.2); Carbon Dioxide 30 mmol/L (22-30); Chloride 85 mmol/L (98-107); Estimated CRCL calculation 59 ml/min; Estimated Glomerular Filt Rate 47; Glucose 215 mg/dL (65-110); Potassium 3.3 mmol/L (3.4-5.0); Sodium 120 mmol/L (137-145)
[2025-06-11 17:28] LABS: Anion Gap 7 mmol/L (4-12); Blood Urea Nitrogen 25 mg/dL (9-20); Calcium 7.9 mg/dL (8.4-10.2); Carbon Dioxide 30 mmol/L (22-30); Chloride 86 mmol/L (98-107); Estimated CRCL calculation 66 ml/min; Estimated Glomerular Filt Rate 53; Glucose 200 mg/dL (65-110); Potassium 3.3 mmol/L (3.4-5.0); Sodium 123 mmol/L (137-145)
[2025-06-11 21:06] LABS: Anion Gap 7 mmol/L (4-12); Blood Urea Nitrogen 22 mg/dL (9-20); Calcium 8.1 mg/dL (8.4-10.2); Carbon Dioxide 31 mmol/L (22-30); Chloride 88 mmol/L (98-107); Estimated CRCL calculation 66 ml/min; Estimated Glomerular Filt Rate 54; Glucose 140 mg/dL (65-110); Potassium 3.1 mmol/L (3.4-5.0); Sodium 126 mmol/L (137-145)
[2025-06-12] VITALS (8 sets, daily range): BP systolic 131–160; BP diastolic 47–74; PULSE 66–82; RESP 16–20; TEMP 36.2–36.7; O2SAT 94–100
[2025-06-12] MEDS: SODIUM CHLORIDE 0.9% IV 1,000 ML 125 ML IV CONT (07:08)
[2025-06-12] MEDS: OLMESARTAN MEDOXOMIL 5 MG TABLET PO (08:28)
[2025-06-12] MEDS: ATORVASTATIN 20 MG TABLET PO (08:28)
[2025-06-12] MEDS: ASPIRIN 81 MG ENTERIC TABLET PO (08:28)
[2025-06-12] MEDS: ENOXAPARIN 40 MG/0.4 ML SYRINGE SUB-Q (08:29)
[2025-06-12 10:55] LABS: Alanine Aminotransferase 26 U/L (6-50); Albumin Level 3.4 g/dL (3.5-5.1); Alkaline Phosphatase 69 U/L (38-126); Anion Gap 5 mmol/L (4-12); Aspartate Amino Transferase 42 U/L (17-59); Bilirubin,Total 0.7 mg/dL (0.2-1.3); Blood Urea Nitrogen 15 mg/dL (9-20); Calcium 7.9 mg/dL (8.4-10.2); Carbon Dioxide 30 mmol/L (22-30); Chloride 91 mmol/L (98-107); Estimated CRCL calculation 84 ml/min; Estimated Glomerular Filt Rate > 60; Glucose 210 mg/dL (65-110); Potassium 3.2 mmol/L (3.4-5.0); Sodium 126 mmol/L (137-145); Total Protein 6.5 g/dL (6.3-8.2)
[2025-06-12 11:22] LABS: Magnesium 2.2 mg/dL (1.6-2.3)
[2025-06-12 16:00] LABS: Sodium 126 mmol/L (137-145)
--- NOTE | 2025-06-12 17:06 | P.PNIM_ITS ---
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 Hyponatremia On admission, Na 117, likely secondary to poor oral intake in the setting of GLP1 agonist medication No history of hyponatremia, no history of liver cirrhosis Na 123 down from 126 now on fluid restriction, salt tablets and lasix monitor urine osmolality and sodium monitor 2. Hypokalemia-improved 3. Hypo magnesemia-improved 4. Morbid obesity Patient takes daily P 1 receptor [id number] until his oral intake improves 5. Hypertension Hold furosemide, and hydrochlorothiazide BP goal<130/80 Resume Olmesartan DVT prophylaxis on Sq Lovenox Subjective Date/time seen: 06/12/25 17:06 Interval history: patient comfortable at bedside and Na 123 despite IV saline Started on Fluid restriction adn Salt tablets Review of Systems Review of Systems: 12 systems were reviewed with pertinent positives and negatives per HPI. Except as documented in the HPI, all other systems were reviewed and are negative. Exam Narrative: APPEARANCE: No acute distress, obese EYES: EOMI HEENT: Normocephalic, atraumatic, OMM RESPIRATORY: No respiratory distress Clear to auscultation bilaterally with no rhonchi wheezing or rales. CARDIOVASCULAR: RRR, S1 and S2 without murmurs rubs or gallops. ABDOMINAL: Abdominal distension but Soft, nontender, nondistended, no rebound or guarding MUSCULOSKELETAl: Limited by his foot anomaly NEURO: Awake and alert. Following commands, speech normal, no focal deficits SKIN:: Warm, dry. No rashes lesions or abrasions PSYCHIATRIC: Normal affect/mood Const: Other: Obese, no acute distress, snoring quite loudly when I 1st entered the room with witnessed apnea HENMT: Other: Mucous membranes are tacky, no oral pharyngeal erythema, markedly crowded posterior oropharynx Eyes: Other: Pupils are equal and reactive, no scleral icterus, no conjunctival pallor Neck: Other: Large neck circumference, no JVD Resp: Other: Clear to auscultation bilaterally, no increased work of breathing Cardio: Other: Regular rate, regular rhythm, 2+ bilateral radial pedal pulses GI: Other: Obese, soft, nontender Skin: Other: No jaundice, no pallor Neuro: Other: Alert oriented x4, speech is clear, no facial asymmetry, no localizing neurologic deficits noted during course of conversation Extrem: Other: No clubbing, cyanosis or edema, bilateral joint foot deformities due to Charcot arthropathy no foot wounds Psych: Other: Appropriate mood and affect, pleasant and cooperative, judgment and insight intact Objective Data Vital Signs Vital Signs: Vital Signs - 24 hr 06/11/25 20:00 06/11/25 20:00 06/11/25 20:00 Temperature 98.0 F Pulse Rate 66 66 67 Respiratory Rate 18 18 Blood Pressure 109/55 L Pulse Oximetry 99 99 Oxygen Delivery Room Air 06/12/25 00:00 06/12/25 00:00 06/12/25 00:41 Temperature 98.0 F Pulse Rate 82 77 Respiratory Rate 20 Blood Pressure 139/47 L Pulse Oximetry 98 94 Oxygen Delivery Room Air 06/12/25 04:00 06/12/25 04:00 06/12/25 08:00 Temperature 97.4 F L 97.8 F Pulse Rate 68 72 70 Respiratory Rate 20 18 Blood Pressure 131/53 L 135/63 Pulse Oximetry 98 98 Oxygen Delivery 06/12/25 08:00 06/12/25 12:00 06/12/25 12:00 Temperature 98.1 F Pulse Rate 74 69 72 Respiratory Rate 18 Blood Pressure 142/56 H Pulse Oximetry 99 Oxygen Delivery 06/12/25 16:00 Temperature Pulse Rate 71 Respiratory Rate 18 Blood Pressure 160/74 H Pulse Oximetry 100 Oxygen Delivery Intake/Output Intake/Output: Intake & Output 06/09/25 06/10/25 06/11/25 06/12/25 23:59 23:59 23:59 23:59 Intake Total 3000 4820 3188.8 Output Total 900 Balance 3000 3920 3188.8 Meds/Results Medications: Active Medications Generic Name Dose Route Start Last Admin Trade Name Juliet PRN Reason Stop Dose Admin Aspirin 81 mg 06/11/25 09:00 06/12/25 08:28 Aspirin 81 Mg Enteric Tablet PO 81 mg DAILY FELIX Administration Atorvastatin Calcium 20 mg 06/11/25 09:00 06/12/25 08:28 Atorvastatin 20 Mg Tablet PO 20 mg DAILY FELIX Administration Dextrose 12.5 gm 06/11/25 01:18 Dextrose 50% 25 Gm/50 Ml Syringe IV PUSH PRN PRN Hypoglycemia Protocol Enoxaparin Sodium 40 mg 06/11/25 09:00 06/12/25 08:29 Enoxaparin 40 Mg/0.4 Ml Syringe SUB-Q 40 mg DAILY FELIX Administration Ergocalciferol 1,250 mcg 06/14/25 09:00 Ergocalciferol (Vitamin D2) 1,250 Mcg (50,000 Units) Capsule PO WEEKLY [facility] Furosemide 20 mg 06/12/25 17:05 Furosemide 20 Mg Tablet PO BID [facility] Gabapentin 300 mg 06/11/25 01:14 Gabapentin 300 Mg Capsule PO TID PRN nerve pain, back pain, foot pain Glucagon 1 mg 06/11/25 01:18 Glucagon For Inj 1 Mg Vial IM PRN PRN Hypoglycemia Protocol Glucose 15 gm 06/11/25 01:18 Glucose Oral Gel 15 Gm Of Glucse In 37.5 Gm Tube PO PRN PRN Hypoglycemia Protocol Dextrose 1,000 mls @ 100 mls/hr 06/11/25 01:18 Dextrose 5% 1,000 Ml IVPB PRN PRN Hypoglycemia Protocol Olmesartan 5 mg 06/11/25 09:00 06/12/25 08:28 Olmesartan Medoxomil 5 Mg Tablet PO 5 mg DAILY [facility] Administration Sodium Chloride 1 gm 06/13/25 09:00 Sodium Chloride 1 Gm Tablet PO TID [facility] Radiology Results: ITS Impressions Chest X-Ray 06/11/25 06:49 IMPRESSION: 1. No acute cardiopulmonary findings. Labs Labs: Laboratory Results - last 24 hr 06/11/25 06/11/25 06/11/25 16:30 20:45 21:03 Sodium 123 L 126 L Potassium 3.3 L 3.1 L Chloride 86 L 88 L Carbon Dioxide 30 31 H Anion Gap 7 7 BUN 25 H 22 H Creatinine 1.34 H 1.33 H Estim Creat Clear Calc 66 66 Estimated GFR 53 L 54 L Glucose 200 H 140 H POC Capillary Glucose 142 H Calcium 7.9 L 8.1 L Magnesium Total Bilirubin AST ALT Alkaline Phosphatase Total Protein Albumin 06/12/25 06/12/25 06/12/25 07:54 10:19 11:46 Sodium 126 L Potassium 3.2 L Chloride 91 L Carbon Dioxide 30 Anion Gap 5 BUN 15 D Creatinine 1.03 Estim Creat Clear Calc 84 Estimated GFR > 60 Glucose 210 H POC Capillary Glucose 157 H 232 H Calcium 7.9 L Magnesium 2.2 Total Bilirubin 0.7 AST 42 ALT 26 Alkaline Phosphatase 69 Total Protein 6.5 Albumin 3.4 L 06/12/25 06/12/25 15:39 16:50 Sodium 126 L Potassium Chloride Carbon Dioxide Anion Gap BUN Creatinine Estim Creat Clear Calc Estimated GFR Glucose POC Capillary Glucose 123 H Calcium Magnesium Total Bilirubin AST ALT Alkaline Phosphatase Total Protein Albumin Quality VTE Prophylaxis VTE prophylaxis: pharmacologic ordered (Lovenox 40 mg subQ daily.)
[2025-06-12] MEDS: SODIUM CHLORIDE 1 GM TABLET PO (17:32)
[2025-06-12] MEDS: FUROSEMIDE 20 MG TABLET PO (17:32)
[2025-06-12] MEDS: POTASSIUM CHLORIDE 20 MEQ ER TABLET 40 MEQ PO (17:33)
[2025-06-13] VITALS: PULSE 68
[2025-06-13 03:05] VITALS: BP 121/50; PULSE 76; RESP 18; TEMP 36.3; O2SAT 99
[2025-06-13 04:00] VITALS: PULSE 71
[2025-06-13 06:49] LABS: Hematocrit 32.2 % (42.0-52.0); Hemoglobin 10.9 g/dL (14.0-18.0); Immature Granulocyte Percent A 0.4 % (0-0.5); Lymphocytes Absolute Auto 1.06 K/mm3 (0.9-3.2); Mean Corpuscular HGB Conc 33.9 g/dl (32-36); Mean Corpuscular Hemoglobin 29.9 pg (26-34); Mean Corpuscular Volume 88.5 fl (80-100); Nucleated Red Blood Cells Absolute Auto 0.000 K/mm3 (0.0-0.012); Nucleated Red Blood Cells Perc 0.0 % (0.0-0.2); Platelet Count Result 271 k/mm3 (150-375); Red Blood Count 3.64 M/mm3 (4.6-6.20); White Blood Count 5.2 K/mm3 (4.5-10.0)
[2025-06-13 07:10] LABS: Alanine Aminotransferase 22 U/L (6-50); Albumin Level 3.4 g/dL (3.5-5.1); Alkaline Phosphatase 66 U/L (38-126); Anion Gap 6 mmol/L (4-12); Aspartate Amino Transferase 38 U/L (17-59); Bilirubin,Total 0.7 mg/dL (0.2-1.3); Blood Urea Nitrogen 9 mg/dL (9-20); Calcium 8.0 mg/dL (8.4-10.2); Carbon Dioxide 31 mmol/L (22-30); Chloride 89 mmol/L (98-107); Estimated CRCL calculation 92 ml/min; Estimated Glomerular Filt Rate > 60; Glucose 126 mg/dL (65-110); Magnesium 1.7 mg/dL (1.6-2.3); Potassium 3.1 mmol/L (3.4-5.0); Sodium 126 mmol/L (137-145); Total Protein 6.4 g/dL (6.3-8.2)
[2025-06-13 08:00] VITALS: BP 148/60; PULSE 69; PULSE 73; RESP 16; TEMP 36.1; O2SAT 99
[2025-06-13] MEDS: ENOXAPARIN 40 MG/0.4 ML SYRINGE SUB-Q (09:19)
[2025-06-13] MEDS: FUROSEMIDE 20 MG TABLET PO (09:19)
[2025-06-13] MEDS: SODIUM CHLORIDE 1 GM TABLET PO ×2 (09:19→13:36)
[2025-06-13] MEDS: ASPIRIN 81 MG ENTERIC TABLET PO (09:19)
[2025-06-13] MEDS: OLMESARTAN MEDOXOMIL 5 MG TABLET PO (09:19)
[2025-06-13] MEDS: ATORVASTATIN 20 MG TABLET PO (09:19)
[2025-06-13] MEDS: POTASSIUM CHLORIDE INJ 40 MEQ in SODIUM CHLORIDE 0.9% IV 500 ML 130 MEQ IVPB (10:51)
[2025-06-13] MEDS: POTASSIUM CHLORIDE 20 MEQ PACKET (FOR LIQUID) 40 MEQ PO (10:51)
[2025-06-13 11:25] LABS: Anion Gap 8 mmol/L (4-12); Blood Urea Nitrogen 8 mg/dL (9-20); Calcium 8.4 mg/dL (8.4-10.2); Carbon Dioxide 31 mmol/L (22-30); Chloride 89 mmol/L (98-107); Estimated CRCL calculation 91 ml/min; Estimated Glomerular Filt Rate > 60; Glucose 153 mg/dL (65-110); Potassium 3.6 mmol/L (3.4-5.0); Sodium 128 mmol/L (137-145)
--- NOTE | 2025-06-13 11:38 | PM.DS ---
DS: Admitting Diagnosis Discharge Date 06/13/25 Admitting Diagnosis Weakness and dizziness with standing DS: Discharge Diagnosis Discharge Diagnosis (1) Acute hyponatremia: Code(s): E87.1 - Hypo-osmolality and hyponatremia Status: Acute DS: Summary Hospital Course Hospital Course: HPI per admitting provider: 65-year-old male with a past medical history of obesity, insulin-dependent diabetes mellitus (since age 24) complicated by peripheral neuropathy/Charcot deformity, chronic kidney disease, and hyperlipidemia who presented to the ER from home via EMS due to weakness and lightheadedness with standing. He had a near syncopal episode earlier today and had to slide down to his buttocks but denies injury. He has generally not felt well for several days. He has had poor appetite. He reported that he feels like he has some increased sinus congestion. Per EMS documentation the patient's glucose was 142, blood pressures 82/44 pulse 80 and normal oxygen saturations on room air. The patient received 1 L normal saline per EMS and blood pressures on arrival to the ER or 99/70. He was given an additional 1 L of IV fluids and labs were drawn. Labs demonstrated hyponatremia hypokalemia and acute kidney injury. The patient had not produced urine specimen as of yet. The patient received a total of 80 of p.o. potassium and 2 g magnesium sulfate rider. I requested orthostatic vital signs be performed which demonstrated orthostatic hypotension when going from sitting to standing. He does admit that he has had some decreased urine output recently. He denies any dysuria or hematuria. He denies weak urine stream. The patient was subsequently admitted for further treatment in the setting. He was managed for Hyponatremia with amdission Na bring 117 This was suspected to be from [facility] however patien is on HCTZ and initially responded to IV saline and was not. Yesterday Na decreased to 123 from 126, and he was started on Fluid restriction, Salt tablets and lasix, today na has increased to 128. Patient insisted on being discharged, and since he is asymptomatic he was discharged on 5 days of salt tablets and repeat BMP on . Will follow up with PCP in 3-5 days Hypokalemia, Hypomagnesemia resolved HCTZ discontinued F/u with PCP in 3-5 days Time Spent with Patient Time attestation: Total time spent providing and/or coordinating discharge services: DS: Data Data Completed and Pending Labs on day of discharge: Labs from last 24 hours 06/13/25 06/13/25 06/13/25 10:45 07:52 06:35 WBC 5.2 RBC 3.64 L Hgb 10.9 L Hct 32.2 L MCV 88.5 MCH 29.9 MCHC 33.9 RDW 12.5 Plt Count 271 MPV 9.1 Immature Gran % (Auto) 0.4 Neut % (Auto) 65.4 Lymph % (Auto) 20.5 [place] % (Auto) 11.0 H Eos % (Auto) 2.1 Baso % (Auto) 0.6 Lymph # (Auto) 1.06 [place] # (Auto) 0.6 Eos # (Auto) 0.1 Baso # (Auto) 0.0 Abs Immat Gran (auto) 0.02 Absolute Neuts (auto) 3.4 Absolute Nucleated RBC 0.000 Nucleated RBC % 0.0 Sodium 128 L 126 L Potassium 3.6 3.1 L Chloride 89 L 89 L Carbon Dioxide 31 H 31 H Anion Gap 8 6 BUN 8 L 9 D Creatinine 0.95 0.94 Estim Creat Clear Calc 91 92 Estimated GFR > 60 > 60 Glucose 153 H 126 H POC Capillary Glucose 115 H Calcium 8.4 8.0 L Magnesium 1.7 Total Bilirubin 0.7 AST 38 ALT 22 Alkaline Phosphatase 66 Total Protein 6.4 Albumin 3.4 L Urine Osmolality Ur Random Sodium Urine Creatinine 06/12/25 06/12/25 06/12/25 19:29 19:25 16:50 WBC RBC Hgb Hct MCV MCH MCHC RDW Plt Count MPV Immature Gran % (Auto) Neut % (Auto) Lymph % (Auto) [place] % (Auto) Eos % (Auto) Baso % (Auto) Lymph # (Auto) [place] # (Auto) Eos # (Auto) Baso # (Auto) Abs Immat Gran (auto) Absolute Neuts (auto) Absolute Nucleated RBC Nucleated RBC % Sodium Potassium Chloride Carbon Dioxide Anion Gap BUN Creatinine Estim Creat Clear Calc Estimated GFR Glucose POC Capillary Glucose 243 H 123 H Calcium Magnesium Total Bilirubin AST ALT Alkaline Phosphatase Total Protein Albumin Urine Osmolality Pending Ur Random Sodium 78 Urine Creatinine 28.8 06/12/25 06/12/25 15:39 11:46 WBC RBC Hgb Hct MCV MCH MCHC RDW Plt Count MPV Immature Gran % (Auto) Neut % (Auto) Lymph % (Auto) [place] % (Auto) Eos % (Auto) Baso % (Auto) Lymph # (Auto) [place] # (Auto) Eos # (Auto) Baso # (Auto) Abs Immat Gran (auto) Absolute Neuts (auto) Absolute Nucleated RBC Nucleated RBC % Sodium 126 L Potassium Chloride Carbon Dioxide Anion Gap BUN Creatinine Estim Creat Clear Calc Estimated GFR Glucose POC Capillary Glucose 232 H Calcium Magnesium Total Bilirubin AST ALT Alkaline Phosphatase Total Protein Albumin Urine Osmolality Ur Random Sodium Urine Creatinine Discharge Plan Discharge Attending physician on discharge: Lindsey Isidro Consulting providers: Lindsey Isidro Discharging Clinician: Lindsey Isidro Anticipated Discharge Date/Time: 06/13/25 11:31 Patient Disposition: Home Activity: as tolerated Diet: as tolerated and regular Patient Instructions: Antibiotic Form Patient Language: [place] Stand Alone Forms: Work/School Release IP Follow-up/Referrals: Nimco Gongora [employer] [Primary Care Provider, Family Practice] Referral Note: F/u with PCP in 3-5 days Discharge Medications: New sodium chloride 1,000 mg Tablet,Soluble 1,000 mg PO TID 7 Days Qty: 21 0RF Continued Mounjaro 15 mg/0.5 mL pen injector 15 mg subcut WEEKLY Qty: 6 1RF Patient Comments: takes on wednesday olmesartan 5 mg tablet 5 mg PO DAILY Qty: 90 1RF aspirin [Adult Low Dose Aspirin] 81 mg tablet,delayed release (DR/EC) 81 mg PO DAILY gabapentin 300 mg capsule 300 mg PO TID PRN (Reason: nerve pain, back pain, foot pain) Qty: 90 5RF Patient Comments: prn never takes 3 a day (DME) Omnipod 5 G6-G7 Intro Kt(Gen5) Cartridge SUBCUT cholecalciferol (vitamin D3) 1,250 mcg (50,000 unit) capsule 1,250 mcg PO WEEKLY Qty: 12 3RF (DME) Omnipod 5 G6-G7 Pods (Gen 5) Cartridge See Rx Instructions .ROUTE .MEDSUPPLY Qty: 45 2RF Rx Instructions: Change every 48hours furosemide 20 mg tablet 20 mg PO QAM Qty: 90 1RF atorvastatin 20 mg tablet 20 mg PO DAILY 90 Days Qty: 90 1RF (DME) Dexcom G7 Sensor Device See Rx Instructions .ROUTE .MEDSUPPLY Qty: 9 3RF Rx Instructions: Use to monitor glcuose Discontinued hydrochlorothiazide 25 mg tablet 25 mg PO DAILY Qty: 90 1RF Other Ambulatory Orders: Basic Metabolic Panel (Routine) Timeframe: 2 Days Location: Determined by Patient Ordered By: Lindsey Isidro Date of admission: 06/10/25 22:57 Primary Care Provider: Nimco Gongora Admitting Provider: Lanette Garcia Attending physician on admission: Lanette Garica Condition: Improved
[2025-06-13 12:00] VITALS: BP 156/75; PULSE 72; RESP 16; TEMP 36.3; O2SAT 100
[2025-06-16 10:09] LABS: Osmolality, Urine 239 mOsmol/kg (.)
[2025-06-16 12:08] LABS: Osmolality, Serum 262 mOsmol/kg (280-301)
[2025-06-18 04:06] LABS: Osmolality, Urine 252 mOsmol/kg (.)
--- NOTE | 2025-06-18 16:15 | PCCDE ---
06/18/25: DM educator attempted courtesy follow up call - message left including direct call back number.
== END 2025-06-13 15:05 | disposition home or self-care (01) | DRG 641 ==
LOC: ANHED 22:47 → ANH3MEDSUR 23:19
PROVIDERS: Student in an Organized Health Care Education/Training Program; Admitting Provider Internal Medicine; Emergency Provider Emergency Medicine; PCP Nurse Practitioner Family; Visit Provider Internal Medicine
DX: E87.1 Hypo-osmolality and hyponatremia (principal); N17.9 Acute kidney failure, unspecified; E87.6 Hypokalemia; E83.41 Hypermagnesemia; E86.0 Dehydration; E86.1 Hypovolemia; N18.9 Chronic kidney disease, unspecified; I12.9 Hypertensive chronic kidney disease with stage 1 through stage 4 chronic kidney disease, or unspecified chronic kidney disease; E10.610 Type 1 diabetes mellitus with diabetic neuropathic arthropathy; E10.22 Type 1 diabetes mellitus with diabetic chronic kidney disease; E78.2 Mixed hyperlipidemia; I95.1 Orthostatic hypotension; J32.8 Other chronic sinusitis; M72.0 Palmar fascial fibromatosis [Dupuytren]; E55.9 Vitamin D deficiency, unspecified; E66.01 Morbid (severe) obesity due to excess calories; F10.90 Alcohol use, unspecified, uncomplicated; Z20.822 Contact with and (suspected) exposure to COVID-19; Z96.41 Presence of insulin pump (external) (internal); Z79.82 Long term (current) use of aspirin; Z79.4 Long term (current) use of insulin; Z68.37 Body mass index [BMI] 37.0-37.9, adult; Z85.828 Personal history of other malignant neoplasm of skin; Z87.891 Personal history of nicotine dependence
CPT/HCPCS: 36415; 71046; 80048; 80053; 81001; 82570; 82948; 83735; 83930; 83935; 84100; 84295; 84300; 85025; 87637; 93005; 96360; 99285; A9270; J1650; J3475; J3480; J7030; J7040